=== PATIENT | male | born 1965 | race Caucasian/White ===

== ENCOUNTER → 2016-09-03 | Outpatient (CLI) | payer OTHER ==
[~2016-09-03] MED LIST: ASCA500 PO; ASCO500T16 PO; ASPI81TA28 PO; DILT-119 PO; ENOX30IN4 SQ; FRRG PO; GABA-113 PO; ISOS60TA25 PO; LSN5 PO; LVNIS30 SQ; METO25TA56 PO; MULT-878 PO; NAPR-1169 PO; NTRGSL/4 UT; OXYC-57 PO; PANT40TA PO; PRVHFAIN INH; QVRINH80 INH; SENN-61 PO; SIMV20TA2 PO; VNTHFA/IN INH
== END | disposition home or self-care (01) ==
LOC: C.RDSM 13:16
PROVIDERS: ATTEND Orthopaedic Surgery Sports Medicine
DX: M25.562 Pain in left knee (principal); M25.561 Pain in right knee

== ENCOUNTER 2016-10-08 09:14 | Inpatient (IN) | payer OTHER ==
[2016-09-12 15:26] VITALS: BMI 52.0
--- NOTE | 2016-09-12 15:49 | PAT Medication Instructions ---
Service Date Sep 12, 2016. Current Home Medication List Albuterol Hfa (Ventolin Hfa), 2-4 PUFFS INH Q6H PRN for PRN Aspirin (Aspirin Ec), 81 MG PO QAM Beclomethasone Dip (Qvar), 3 PUFFS INH BID Diltiazem Hcl Ext Rel (Tiazac), 360 MG PO QAM Gabapentin (Neurontin), 300 MG PO HS PRN for Pain Isosorbide Mononitrate Ext Rel (Imdur Ext Rel), 60 MG PO QAM Lisinopril (Lisinopril), 5 MG PO QAM Metoprolol Tartrate (Lopressor) (Lopressor), 12.5 MG PO BID Naproxen (Naprosyn), 500 MG PO BID PRN for PRN Nitroglycerin (Nitrostat), 0.4 MG UT PRN Pantoprazole (Protonix), 40 MG PO QAM Simvastatin (Zocor), 20 MG PO HS Medication Instructions For Your Scheduled Surgery - Check with surgeon for instructions: Naproxen (Naprosyn), 500 MG PO BID PRN for PRN - Hold the following medications the morning of surgery: Lisinopril (Lisinopril), 5 MG PO QAM - Take the following medications the morning of surgery with a sip of water: Nitroglycerin (Nitrostat), 0.4 MG UT PRN (if needed) Pantoprazole (Protonix), 40 MG PO QAM Metoprolol Tartrate (Lopressor) (Lopressor), 12.5 MG PO BID Isosorbide Mononitrate Ext Rel (Imdur Ext Rel), 60 MG PO QAM Beclomethasone Dip (Qvar), 3 PUFFS INH BID Diltiazem Hcl Ext Rel (Tiazac), 360 MG PO QAM Albuterol Hfa (Ventolin Hfa), 2-4 PUFFS INH Q6H PRN for PRN (use if needed; bring with you to hospital morning of surgery) Aspirin (Aspirin Ec), 81 MG PO QAM (okay to continue per surgeon) - Take the following medications as scheduled the night before surgery: Simvastatin (Zocor), 20 MG PO HS Nitroglycerin (Nitrostat), 0.4 MG UT PRN (if needed) Metoprolol Tartrate (Lopressor) (Lopressor), 12.5 MG PO BID Gabapentin (Neurontin), 300 MG PO HS PRN for Pain (if needed) Beclomethasone Dip (Qvar), 3 PUFFS INH BID Albuterol Hfa (Ventolin Hfa), 2-4 PUFFS INH Q6H PRN for PRN (if needed) If you have any questions please call us at [phone] or [phone] or [phone]
[2016-09-12 16:06] LABS: BASO % 0.5 %; BASO ABS # 0.05 K/uL (0-0.2); COMPLETE YES; EOS % 3.1 %; HEMATOCRIT 48.3 % (42-52); IG% 0.3 %; LYMPH % 27.5 %; LYMPH ABS # 2.64 K/uL (1.2-3.4); MEAN CELL VOLUME 79.3 fL (80-100); MEAN CORPUSCULAR HEMOGLOBIN 27.3 pg (25-34); MEAN CORPUSCULAR HGB CONC 34.4 g/dl (32-36); MEAN PLATELET VOLUME 9.9 fL (7.4-10.4); MONO % 10.5 %; NEUT % 58.1 %; PLATELET COUNT 291 K/uL (130-400); RED BLOOD COUNT 6.09 M/uL (4.7-6.1)
[2016-09-12 16:17] LABS: URINE APPEARANCE CLEAR (CLEAR); URINE BILIRUBIN NEG (NEG); URINE COLOR YELLOW; URINE NITRITE NEG (NEG); URINE PH 5.5 (4.5-7.5); URINE SPECIFIC GRAVITY 1.015 (1.000-1.030); UROBILINOGEN NEG (NEG)
[2016-09-12 16:19] LABS: PARTIAL THROMBOPLASTIN RATIO 1.1; PROTHROMBIN TIME (PATIENT) 10.7 SECONDS (9.0-12.0)
--- NOTE | 2016-09-12 16:21 | History and Physical ---
History & Physical Date Sep 12, 2016. Chief Complaint Left knee pain History of Present Illness The patient is a 51 year old male with complaints of left knee pain that has failed conservative measures, such as rest, ice, therapy, behavior modification , oral analgesics and antiinflammatories, along with intraarticular joint injection. The pain effects his life on a daily basis and makes it difficult to perform certain ADL's and elective activity. The pain is also worse with activity but also present at rest. Denies any recent injuries or falls. Denies calf pain or numbness/tingling in the distal extremity. Past Medical/Surgical History Past Medical History: 1) HTN 2) Obesity 3) H/O IA x 3 4) Left hip aneurysm, followed by [facility] in [place] 5) Asthma 6) Sleep apnea 7) Osteoarthritis Past Surgical History: 1) Stent placement/heart catheterization x 5 2) Left knee arthroscopy x 3 3) Right knee arthroscopy x 3 4) Left shoulder 5) Appendicitis 6) Tonsillectomy Social History: 1) Admits to 5 alcoholic beverages per week. Denies tobacco or illegal drug use. Review of systems: Denies headache, chest pain, shortness of breath, fevers, chills, night sweats Additional History Hepatic Disease: No Endocrine Disorder: No Kidney Disease: No Hypertension: Yes Heart Disease: Yes Bleeding Tendencies: No Infectious Diseases: No Allergies Coded Allergies: NO KNOWN DRUG ALLERGIES (Verified Allergy, Unknown, NONE, 09/12/16) Unclassified Drugs (Verified Allergy, Unknown, NEOPRENE KNEE BRACE-RASH SKIN IRRITATION, 09/12/16) Home Medications Scheduled Aspirin (Aspirin Ec), 81 MG PO QAM Beclomethasone Dip (Qvar), 3 PUFFS INH BID Diltiazem Hcl Ext Rel (Tiazac), 360 MG PO QAM Isosorbide Mononitrate Ext Rel (Imdur Ext Rel), 60 MG PO QAM Lisinopril (Lisinopril), 5 MG PO QAM Metoprolol Tartrate (Lopressor) (Lopressor), 12.5 MG PO BID Nitroglycerin (Nitrostat), 0.4 MG UT PRN Pantoprazole (Protonix), 40 MG PO QAM Simvastatin (Zocor), 20 MG PO HS Scheduled PRN Albuterol Hfa (Ventolin Hfa), 2-4 PUFFS INH Q6H PRN for PRN Gabapentin (Neurontin), 300 MG PO HS PRN for Pain Naproxen (Naprosyn), 500 MG PO BID PRN for PRN Physical Examination Skin: warm/dry, no rash, + pertinent finding (mild abrasions noted about the left lower extremity due to extended knee brace wear, has DC'd the brace until this clears, not infectious or full thickness, no further attention or treatment required other than removing offending agent. No erythema or effusion of the left knee. ) Eyes: normal inspection, EOMI, sclerae normal, + pertinent finding (wears glasses for driving ) ENT: normal ENT inspection, pharynx normal Head: normocephalic, atraumatic Neck: supple, no adenopathy Respiratory/Chest: lungs clear, normal breath sounds, no respiratory distress Cardiovascular: regular rate, rhythm, no edema, no murmur Abdomen / GI: normal bowel sounds, non tender, + pertinent finding (rounded) Extremities: + pertinent finding (Left knee range of motion reveals full extension , flexion of 95 degees with pain at endpoints, jointline tenderness, extensor mechanism intact, ligamentously stable) Neurologic/Psych: no motor/sensory deficits, alert, oriented x 3 Addiitonal Comments: Left knee xrays: joint space narrowing, periarticular osteophytosis, sclerotic bone change, no evidence of subchondral cyst formation, no fractures or masses otherwise Diagnosis Left knee DJD Plan of Treatment Zabrina will undergo a left total knee arthroplasty by Dr. Giorgi Aaron MD from [facility] 10/08/16 at the [facility]. Zabrina will obtain preoperative clearance through his PCP Dr. Guillen 09/26/16, Marketing Content Coordinator Dr. Peraza 09/17/16, and [facility] in [place] 09/19/16 regarding his left hip aneurysm, which has remained stable. Medications upon discharge will include Percocet for pain and Lovenox 30mg BID for DVT prophylaxis. Zabrina does not have a walker and we will write for one to be obtained while he is in the hospital. The patient is requesting to go to rehab upon discharge due to living alone and comorbidities. There will be a 2 week follow up appointment with Dr. Aaron for staple removal. Aspirin 81mg to be discontinued 7-10 days prior surgery. Any other questions please notify [facility] at [phone], thank you.
[2016-09-12 16:28] LABS: MANUAL MICROSCOPIC REQUIRED? NO; REVIEW REQ? NO
[2016-09-12 16:31] LABS: CALCIUM 9.1 mg/dl (8.5-10.1); CREATININE 0.93 mg/dl (0.60-1.40); POTASSIUM 4.5 mmol/L (3.5-5.1)
[2016-10-08] VITALS (7 sets, daily range): BP systolic 113–129; BP diastolic 72–79; PULSE 63–76; TEMP 36.4–36.6; O2SAT 96–100; Ht 180.3 cm; Wt 169.2 kg
[~2016-10-08] VITALS: Ht 180.3 cm; Wt 169.2 kg
[~2016-10-08 09:14] MED LIST changes: -ASCA500 PO; -ASCO500T16 PO; +CEFAZOLIN 3000 MG/65 ML D5W 65 ML IV SCH; -ENOX30IN4 SQ; -FRRG PO; +LACTATED RINGER'S 1000ML 1,000 ML IV SCH; +LACTATED RINGER'S 1000ML 500 ML IV ONE; -LVNIS30 SQ; +MIDAZOLAM HCL 1 MG/ML 2ML VIAL ONE; -MULT-878 PO; -OXYC-57 PO; -PRVHFAIN INH; +ROPIVACAINE 5MG/ML 30 ML 150 MG, BUPIVACAINE/EPINEPHR 0.5% MPF 30 ML, KETOROLAC TROMETH... INFIL SCH; -SENN-61 PO
[2016-10-08] MEDS ORDERED: BUPIVACAINE 0.25% 30 ML VIAL ONE (10:27)
[2016-10-08] MEDS ORDERED: BUPIVACAINE 0.5 % 5 MG/1 ML PF 10ML VIAL ONE (10:37)
--- NOTE | 2016-10-08 11:46 | History & Physical Bridge Note ---
H&P Re-Evaluation Bridge Note: I have examined the patient, reviewed the History & Physical and in the interval since the performance of the History & Physical I have noted the following changes of clinical significance: No changes noted
[2016-10-08] MEDS: TRANEXAMIC ACID INJ 1,000 MG in SODIUM CHLORIDE 0.9% 100ML 100 ML IV SCH ×2 (11:58→18:00)
[2016-10-08] MEDS ORDERED: PHENYLEPHRINE 100MCG/ML 5ML SYR IV PRN (12:30)
[2016-10-08] MEDS ORDERED: EpHEDrine SULFATE INJ 50 MG/ML AMP IV PRN (12:30)
[2016-10-08] MEDS ORDERED: ATROPINE SULFATE 0.1 MG/ML 5ML SYR IV PRN (12:30)
[2016-10-08] MEDS ORDERED: KETOROLAC TROMETHAMINE 30 MG/ML VIAL IV. PRN (12:30)
[2016-10-08] MEDS ORDERED: HYDROmorphone INJ 2 MG/ML SYR/VIAL IV PRN (12:30)
[2016-10-08] MEDS ORDERED: ONDANSETRON INJ 2 MG/ML 2 ML VIAL IV PRN ×2 (12:30→15:45)
[2016-10-08] MEDS ORDERED: LIDOCAINE HCL 2% 2 ML VIAL (20MG/ML) ONE (12:44)
[2016-10-08] MEDS ORDERED: PROPOFOL IV EMULSION 10 MG/ML 20 ML VIAL IV ONE ×4 (12:44→14:30)
[2016-10-08] MEDS ORDERED: FENTANYL CITRATE INJ 50 MCG/1 ML 2 ML VIAL ONE (13:23)
[2016-10-08] MEDS: ORTHO JOINT ANESTHETIC ONE (15:00)
[2016-10-08] MEDS: POVIDONE-IODINE OP SOLN 30 ML BTL ONE ×2 (15:00→17:53)
[2016-10-08] MEDS ORDERED: ALUMINUM/MAGNESIUM/SIMETH (MAALOX MAX) 30 ML UDC PO PRN (15:45)
[2016-10-08] MEDS ORDERED: MAGNESIUM HYDROXIDE SUSP 30 ML UDC PO PRN (15:45)
[2016-10-08] MEDS ORDERED: BISACODYL 10 MG SUPP PR PRN (15:45)
[2016-10-08] MEDS ORDERED: SOD PHOSPHATE/SOD BIPHOSPHATE ENEMA 132 ML BTL PR PRN (15:45)
[2016-10-08] MEDS ORDERED: METOCLOPRAMIDE HCL INJ 5 MG/ML 2 ML VIAL IV PRN (15:45)
[2016-10-08] MEDS ORDERED: GABAPENTIN 300 MG CAP PO PRN (16:00)
[2016-10-08] MEDS ORDERED: ALBUTEROL HFA 8 GM INHALER INH PRN (16:00)
[2016-10-08] MEDS ORDERED: NITROGLYCERIN 0.4 MG SL PER TAB CHARGE UT PRN (16:00)
--- NOTE | 2016-10-08 16:50 | DIAGNOSTIC IMAGING REPORT ---
LEFT KNEE 1 OR 2 VIEWS ROUTINE CLINICAL HISTORY: Postop study COMPARISON: August 2016 DISCUSSION: There are postsurgical changes of a total left knee arthroplasty and patellar resurfacing. The femoral and tibial components appear well seated. Overlying skin enzo are visualized. There is air within soft tissues consistent with recent surgery. IMPRESSION: Postsurgical changes of a total left knee arthroplasty. Electronically signed by: Mike Chan M.D. 10/08/2016 4:48 PM Dictated Date/Time: 10/08/2016 4:47 PM
[2016-10-08] MEDS: FERROUS GLUCONATE 324 MG TAB PO SCH (17:45)
[2016-10-08] MEDS: D5W AND 1/2NSS + 20MEQ KCL 1,000 ML IV SCH (17:59)
[2016-10-08] MEDS: CEFAZOLIN IV 2,000 MG in DEXTROSE 5% 50ML 50 ML IV SCH (18:00)
--- NOTE | 2016-10-08 18:27 | [facility] Operative Report ---
Operative Report Operative Date Oct 08, 2016. Pre-Operative Diagnosis Left knee degenerative joint disease Post-Operative Diagnosis Same as preoperative diagnosis Procedure(s) Performed Left Total Knee Arthroplasty Surgeon Dr. Giorgi Aaron Entomology Teacher Surgeon(s) Suresh Shaw PA-C and Dr. Trevin Calderón Estimated Blood Loss 125ml Findings same Specimens Permanent specimens A: Left knee bone and tissue Drains none Anesthesia spinal Complication(s) None Disposition Recovery Room / PACU Indications continued left knee pain, failed conservative management, surgery recommended, consents signed Description of Procedure taken to the OR, prepped and draped, I was present the entire case, please see Dr. Aaron's op note for further detail I attest to the content of the Intraoperative Record and any orders documented therein. Any exceptions are noted below.
--- NOTE | 2016-10-08 18:28 | [facility] Post Operative Brief Note ---
Immediate Operative Summary Operative Date Oct 08, 2016. Pre-Operative Diagnosis Left knee degenerative joint disease Post-Operative Diagnosis Same as preoperative diagnosis Procedure(s) Performed Left Total Knee Arthroplasty Surgeon Dr. Giorgi Aaron Ct Technician Surgeon(s) Suresh Shaw PA-C and Dr. Trevin Calderón Estimated Blood Loss 125ml Findings End-stage OA Left knee. Fluids (cc crystalloids) 1450 Specimens Permanent specimens A: Left knee bone and tissue Drains n/a Anesthesia Spinal + Adductor canal Block Complication(s) None Disposition Recovery Room / PACU (Stable)
--- NOTE | 2016-10-08 18:29 | [facility] Operative Report ---
Operative Report Operative Date Oct 08, 2016. Pre-Operative Diagnosis Left knee degenerative joint disease Post-Operative Diagnosis Same as preoperative diagnosis Procedure(s) Performed Left Total Knee Arthroplasty Surgeon Dr. Giorgi Aaron Telephone Advice Nurse Surgeon(s) Suresh Shaw PA-C and Dr. Trevin Calderón Estimated Blood Loss 125ml Findings Examined Under Anesthesia: ROM -- There was 5 degrees to 110 degrees of flexion Ligamentous examination -- revealed stable Mp, posterior drawer, varus and valgus stress at 0 and 30 degrees. Outerbridge Type IV changes of medial compartment and patellofemoral compartment. Outerbridge type II-III changes in the lateral compartment. Fluids 1450 Specimens Permanent specimens A: Left knee bone and tissue Drains n/a Anesthesia Spinal + Adductor canal Block Complication(s) None Disposition Recovery Room / PACU (Stable) Indications This is a 51-year-old male who has clinical and radiographic findings consistent with osteoarthritis of the a left knee. I recommended that a left total knee replacement be performed. The patient understands the risks of surgery, which include but not limited to: bleeding, infection, re-operation, damage to nerves and arteries, continued knee pain, knee stiffness, DVT, and . The patient understands all of these instructions and explanations, all of his questions have been satisfactorily addressed and the patient has elected to proceed. Informed consent was signed. Description of Procedure IMPLANTS: 1. Femur: Triathlon #6 left PS. 2. Tibia: Triathlon #6 primary. 3. Insert: Triathlon #6 x11 mm PS X3 poly. 4. Patella: Triathlon A38 x 11 mm X3 poly. Procedure: The patient was taken to the Operating Room and placed in the supine position after spinal and adductor nerve block was administered. My initials and a multidisciplinary time-out were used to identify the left leg as the correct operative limb. A tourniquet was placed high in the thigh. Prior to the incision, 3 grams of intravenous Ancef were given. The left leg was then prepped and draped in a standard sterile fashion. An Esmarch was used to exsanguinate the leg and the tourniquet was inflated to 250 mmHg. The planned mid-line 12 cm incision was created exposing the extensor mechanism. The medial parapatellar arthrotomy was made and the patella was everted. As there was some difficulty with everting the patella it was addressed first. The patella was prepared by reaming from 25 mm down to 14mm. A 38 button was found to fit best. The peg holes were made in the standard fashion. The femur was addressed next and the guide brandon was placed intramedullary. The initial cutting block was placed with 5 degrees of valgus and removing 10 mm for the anterior cut. The cut was made and the 4-in-1 cutting block for a size 6 femur was placed. These cuts and the cuts to place the box were made in the standard fashion. Our attention was then drawn to the tibia cut with the external cutting guide, taking 2mm from the medial, low side. There was insufficient extension and flexion gap to fit a 9mm spacer and an additional 2mm needed to be taken. There was a small remnant of the medial meniscus that was also removed. At this point there was sufficient extension and flexion gap for an 11 mm spacer. A #6 Tibial baseplate fit well. A trial with a 11 mm spacer showed excellent stability in both flexion and extension, with good ligament balance. Range of motion of 0-120 degrees. The tibial baseplate was pinned and the final preparation for the keel and stem was made. Due to a BMI of over 50, it was decided to place a tibial stem. All the trial components were tested again, with good stability and thumbs free tracking of the patella. All components were removed. The tourniquet was deflated. Hemostasis was obtained. A bone plug was placed in the femur and covered with bone wax. 90 ml of joint juice was injected into the soft tissues and periosteum. After a 15 minute break, the limb was exsanguinated again and the tourniquet was re-inflated. All surfaces were copiously irrigated prior to placement of the components. The femur and Tibial baseplate were placed using the first batch of cement. Again a 11 mm trial poly was placed and the range of motion and stability were unchanged. Once the cement had cured, the 11 mm X3 poly was placed. The patella was placed using the second batch. The extensor mechanism was closed with 1-0 and 0 Vicryl with the knee bent approximately 60 degrees in a standard fashion. The peritenon and deep fascia was closed with 2-0 Vicryl. The subcutaneous layer was closed with 3-0 Vicryl. The skin was closed with enzo. The limb was cleaned and dried. Xeroform was placed over top followed by 4x4's, ABDs, sterile Webril, and a foot to thigh Antonio bandage. The patient was then transferred to the Recovery Room in stable condition. The sponge and needle counts were correct. POST-OP INSTRUCTIONS: The patient will be WBAT. The patient will be admitted to the hospital. The patient will use the knee immobilizer when ambulating and standing until good quad control is achieved. Labs will be obtained during her stay. DVT prophylaxis will included Lovenox for 3 weeks then switching to aspirin for 3 more weeks, TEDs, and mechanical foot pumps. I attest to the content of the Intraoperative Record and any orders documented therein. Any exceptions are noted below.
--- NOTE | 2016-10-08 18:29 | Anesthesiology Progress Note ---
Anesthesia Post Op Note Date & Time Oct 08, 2016 at 16:20 Vital Signs Pain Intensity: 5 Vital Signs Past 12 Hours Date Time Temp Pulse Resp B/P (MAP) Pulse Ox O2 Delivery O2 Flow Rate FiO2 10/08/16 09:36 36.6 68 20 116/77 97 Room Air Notes Mental Status: alert / awake / arousable, participated in evaluation Pt Amnestic to Procedure: Yes Nausea / Vomiting: adequately controlled Pain: adequately controlled Airway Patency, RR, SpO2: stable & adequate BP & HR: stable & adequate Hydration State: stable & adequate Anesthetic Complications: no major complications apparent
--- NOTE | 2016-10-08 19:47 | Medical Consult ---
Consultation Date of Consultation: Oct 08, 2016. Attending Physician: Giorgi Aaron MD Reason for Consultation: Medical management History of Present Illness This is a 51 yo F with HTN, HLD, morbid obesity BMI, Hx of Myocardial infarction x 3: First was in 2008, second and third at unknown time, but has a total of 5 stents placed, first 3 were after the second HI, and he most recently had 2 more stents placed in 2014. The patient also has PMHx of asthma, sleep apnea requiring CPAP, ostearthritis, and a left hip aneurysm which is followed by Dr. Palma in [place]. The patient was admitted for an elective Left TKA by Dr. Girogi Aaron on 10/08/16. Pt currently reports his pain is worsening, and that he still has some numbness but that its resolving. He denies any acute pain, and states surgery went well. He ate dinner without difficulty and has not suffered any nausea. His plans for going home include a stay at rehab since he lives at home alone, and does not have close friends or neighbors who would be willing to assist him at home. Past Medical/Surgical History HTN Hyperlipidemia Morbid obesity BMI =52 Hx of Myocardial infarction x 3 s/p 5 stents Asthma Obstructive sleep apnea requiring CPAP Ostearthritis Left hip aneurysm Family History Surgical History: 1) Stent placement/heart catheterization x 5 2) Left knee arthroscopy x 3 3) Right knee arthroscopy x 3 4) Left shoulder 5) Appendicitis 6) Tonsillectomy Social History Smoking Status: Never Smoker Alcohol Use: occasionally (5 drinks per week) Drug Use: none Housing Status: lives alone Allergies Coded Allergies: NO KNOWN DRUG ALLERGIES (Verified Allergy, Unknown, NONE, 10/08/16) Unclassified Drugs (Verified Allergy, Unknown, NEOPRENE KNEE BRACE-RASH SKIN IRRITATION, 10/08/16) Current Inpatient Medications Current Inpatient Medications Medications (Trade) Dose Ordered Sig/Yimi Route Start Time Stop Time Status Last Admin Dose Admin Lactated Ringer's 1,000 ml @ 15 mls/hr Q24H IV 10/08/16 06:00 10/09/16 05:59 Lactated Ringer's 1,000 ml @ 60 mls/hr [id number] IV 10/08/16 06:00 10/08/16 22:39 Potassium Chloride/Dextrose/ Sod Cl 1,000 ml @ 100 mls/hr Q10H IV 10/08/16 17:45 10/09/16 15:38 10/08/16 17:59 100 MLS/HR Cefazolin Sodium 2000 mg/Dextrose 60 ml @ 100 mls/hr Q8H IV 10/08/16 18:00 10/09/16 02:35 10/08/16 18:00 100 MLS/HR Oxycodone HCl (Roxicodone Immediate Rel Tab) 1 TABLET FOR PAIN RATING... Q4H PRN PO 10/08/16 15:45 10/22/16 15:44 Morphine Sulfate (MoRPHine SULFATE INJ) 2 mg Q2HWA PRN IV 10/08/16 15:45 10/22/16 15:44 Acetaminophen (Tylenol Tab) 1,000 mg Q8 PO 10/08/16 22:00 11/07/16 21:59 Magnesium Hydroxide (Milk Of Magnesia Susp) 30 ml Q6H PRN PO 10/08/16 15:45 11/07/16 15:44 Bisacodyl (Dulcolax Supp) 10 mg DAILY PRN PA 10/08/16 15:45 11/07/16 15:44 Sodium Biphosphate/ Sodium Phosphate (Fleet Enema) 132 ml DAILY PRN PA 10/08/16 15:45 11/07/16 15:44 Senna (Senokot Tab) 17.2 mg HS PO 10/08/16 21:00 11/07/16 20:59 Docusate Sodium (coLACE CAP) 100 mg BID PO 10/08/16 21:00 11/07/16 20:59 Diphenhydramine HCl (Benadryl Cap) 25 mg Q8H PRN PO 10/08/16 15:45 11/07/16 15:44 Al Hydrox/Mg Hydrox/Simethicone (Maalox Max Susp) 15 ml Q4H PRN PO 10/08/16 15:45 11/07/16 15:44 Multivitamins (Multivitamin Tab) 1 tab QAM PO 10/09/16 09:00 11/08/16 08:59 Ondansetron HCl (Zofran Inj) 4 mg Q6H PRN IV 10/08/16 15:45 11/07/16 15:44 Metoclopramide HCl (Reglan Inj) 10 mg Q6H PRN IV 10/08/16 15:45 11/07/16 15:44 Ferrous Gluconate (Ferrous Gluconate Tab) 324 mg TIDM PO 10/08/16 17:45 11/07/16 17:59 Pantoprazole Sodium (Protonix Tab) 40 mg QAM PO 10/09/16 09:00 11/08/16 08:59 Albuterol (Ventolin Hfa Inhaler) as needed for wheezing Q6H PRN INH 10/08/16 16:00 11/07/16 15:59 Beclomethasone Dipropionate (Qvar 80 Mcg Hfa Inhaler) 3 puffs BID INH 10/08/16 21:00 11/07/16 20:59 Diltiazem HCl (TIAzac CAP) 360 mg QAM PO 10/09/16 09:00 11/08/16 08:59 Gabapentin (Neurontin Cap) 300 mg HS PRN PO 10/08/16 16:00 11/07/16 15:59 Isosorbide Mononitrate (Imdur Ext Rel Tab) 60 mg QAM PO 10/09/16 09:00 11/08/16 08:59 Lisinopril (Zestril Tab) 5 mg QAM PO 10/09/16 09:00 11/08/16 08:59 Metoprolol Tartrate (Lopressor Tab) 12.5 mg BID PO 10/08/16 21:00 11/07/16 20:59 Nitroglycerin (Nitrostat Tab) 0.4 mg UD PRN UT 10/08/16 16:00 11/07/16 15:59 Simvastatin (Zocor Tab) 20 mg HS PO 10/08/16 21:00 11/07/16 20:59 Enoxaparin Sodium (Lovenox Inj) 30 mg Q12H SQ 10/09/16 08:00 11/08/16 07:59 Ascorbic Acid (Vitamin C Tab) 500 mg QAM PO 10/09/16 09:00 11/08/16 08:59 Review of Systems Constitutional: No fever, No chills, No sweats Eyes: No eye pain, No diplopia ENT: No trouble swallowing Respiratory: No cough, No shortness of breath, No dyspnea on exertion, No dyspnea at rest Cardiovascular: No chest pain, No palpitations Abdomen: No pain, No nausea, No vomiting, No diarrhea, No constipation Musculoskeletal: No joint pain, No swelling Neurologic: No memory loss, No numbness/tingling Psychiatric: No depression symptoms, No anxiety Integumentary: No rash, No itch Physical Exam Date Time Temp Pulse Resp B/P (MAP) Pulse Ox O2 Delivery O2 Flow Rate FiO2 10/08/16 19:10 36.4 76 18 121/72 (88) 96 Nasal Cannula 2.0 10/08/16 17:54 100 Nasal Cannula 2.0 10/08/16 17:40 36.4 67 18 120/74 (89) 98 Nasal Cannula 2.0 10/08/16 17:10 100 Nasal Cannula 2.0 10/08/16 16:50 72 18 112/70 97 Nasal Cannula 2 10/08/16 16:40 36.3 63 18 112/74 96 Nasal Cannula 2 10/08/16 16:30 60 23 115/73 97 Nasal Cannula 2 10/08/16 16:20 70 16 124/74 99 Nasal Cannula 2 10/08/16 16:13 36.4 65 16 107/79 100 Nasal Cannula 2 10/08/16 09:36 36.6 68 20 116/77 97 Room Air General Appearance: WD/WN, no apparent distress, + obese Head: normocephalic, atraumatic Eyes: PERRL, EOMI ENT: hearing grossly normal, pharynx normal Neck: supple, no JVD Respiratory/Chest: lungs clear, normal breath sounds, no respiratory distress, no accessory muscle use Cardiovascular: regular rate, rhythm, no edema, no murmur Abdomen/GI: normal bowel sounds, non tender, soft Back: normal inspection Extremities/Musculoskelatal: no calf tenderness, no pedal edema, + pertinent finding (LLE with DEVAUGHN bandage in place, c/d/i, ice pack over knee. ) Neurologic/Psych: alert, normal mood/affect, oriented x 3, + pertinent finding (sensation to light touch intact distally and equal bilaterally) Skin: normal color, warm/dry Assessment & Plan This is a 51 yo M with PMHx of HTN, morbid obesity BMI, Hx of Myocardial infarction x 3, asthma, sleep apnea, ostearthritis, left hip aneurysm, who was admitted for Left TKA by Dr. Giorgi Aaron. Left TKA - Analgesia, DVT ppx with lovenox per the primary team - Bowel regimen in place - PT/OT - Plans for rehab after hospitalization as he does not have help at home, lives alone. CM to assist with discharge planning. - Follow am labs for H&H HI x 3 - Initial cardiac event was in 2008, the second and third MIs he is unable to say when they were. But pt notes his last cardiac intervention was in 2014 where 2 more stents were placed, he now has a total of 5 stents. Pt is unable to tell me if these are bare metal or drug eluting stents. - Continue diltiazem 360 QAM, Imdur 60 mg QAM, metoprolol 12.5 mg BID, lisinopril 5 mg QAM, simvastatin 20 mg QPM Baby aspirin was held prior to procedure. Can resume likely tomorrow if cleared by primary team. - Outpatient lottery clerk is Dr. Peraza Obstructive Sleep Apnea - Continue to use home cpap machine Asthma - Pts triggers include cold air - last asthma attack was over a year ago. Osteoarthritis - Cont Vit D supplementation Left Hip aneurysm - follows with [facility] in [place], regarding his left hip aneurysm, stable DVT ppx: Teds, scds, lovenox 30 mg subq Q12H Code Status: Full Code Disposition: From home, discharge to rehab when stable per primary team Attending Admission Note & Attestation: Pt seen/examined, chart reviewed, care plan d/w THIAGO Cui. I agree w/ the polanco components of her consult documentation. 51yo male with known CAD and prior MIs, morbid obesity, ROSE on CPAP - who underwent elective left TKR today. I saw him post-op on the surg floor - he had NO chest pain, dyspnea, abd pain, nausea, etc. PMH, PSH, allergies, meds, sochx, famhx, ros - reviewed VSS no fever gen - nad, a/o x 3 neck - no JVD heart - RRR, s1, s2, no murmur lungs - CTA b/l, mildly decreased BS bases abd - soft, obese, BS+ ext - mild edema left ankle, large dressing in place left knee; no edema on right A/P: 1. s/p left TKR 2. CAD with prior MIs - resume aspirin as soon as possible and ok with primary ortho team; continue all prehospital cardiac meds 3. morbid obesity w/ BMI 52 4. ROSE - CPAP labs in regla ZARAGOZA MD
[2016-10-08] MEDS: OXYCODONE HCL IR 5 MG TAB (IMMEDIATE RELEASE) PO PRN (20:08)
[2016-10-08] MEDS: MoRPHine SULFATE 2 MG/ML CARP IV PRN (21:23)
[2016-10-08] MEDS: BECLOMETHASONE DIP HFA 80 MCG 8.7G INH INH SCH (21:24)
[2016-10-08] MEDS: DOCUSATE SODIUM 100 MG CAP PO SCH (21:25)
[2016-10-08] MEDS: METOPROLOL TARTRATE 25 MG TAB PO SCH (21:25)
[2016-10-08] MEDS: SENNA 8.6 MG TAB PO SCH (21:25)
[2016-10-08] MEDS: SIMVASTATIN 20 MG TAB PO SCH (21:25)
[2016-10-08] MEDS: ACETAMINOPHEN 500 MG TAB PO SCH (21:26)
[2016-10-09] MEDS: CEFAZOLIN IV 2,000 MG in DEXTROSE 5% 50ML 50 ML IV SCH (02:27)
[2016-10-09] MEDS: MoRPHine SULFATE 2 MG/ML CARP IV PRN ×2 (02:28→11:38)
[2016-10-09] MEDS: D5W AND 1/2NSS + 20MEQ KCL 1,000 ML IV SCH ×2 (03:22→13:52)
[2016-10-09 03:44] VITALS: BP 108/70; PULSE 68; TEMP 36.6; O2SAT 96
[2016-10-09] MEDS: ACETAMINOPHEN 500 MG TAB PO SCH ×3 (05:27→22:03)
[2016-10-09 06:19] LABS: HEMATOCRIT 45.2 % (42-52); MEAN CORPUSCULAR HEMOGLOBIN 27.8 pg (25-34); MEAN CORPUSCULAR HGB CONC 34.7 g/dl (32-36); MEAN PLATELET VOLUME 10.4 fL (7.4-10.4); PLATELET COUNT 283 K/uL (130-400); RED BLOOD COUNT 5.65 M/uL (4.7-6.1); WHITE BLOOD COUNT 16.48 K/uL (4.8-10.8)
[2016-10-09 06:53] LABS: BUN/CREATININE RATIO 22.8 (10-20); CALCIUM 8.5 mg/dl (8.5-10.1); CREATININE 0.98 mg/dl (0.60-1.40); POTASSIUM 4.1 mmol/L (3.5-5.1)
[2016-10-09 08:00] VITALS: BP 114/76; PULSE 75; TEMP 36.6; O2SAT 95
[2016-10-09] MEDS: ENOXAPARIN 30 MG/0.3 ML SYR SQ SCH ×2 (08:02→20:16)
[2016-10-09] MEDS: FERROUS GLUCONATE 324 MG TAB PO SCH ×3 (08:03→17:48)
[2016-10-09] MEDS: BECLOMETHASONE DIP HFA 80 MCG 8.7G INH INH SCH ×2 (08:05→21:12)
[2016-10-09] MEDS: METOPROLOL TARTRATE 25 MG TAB PO SCH ×2 (08:06→21:14)
[2016-10-09] MEDS: MULTIVITAMIN TAB PO SCH (08:07)
[2016-10-09] MEDS: ISOSORBIDE MONONITRATE 60 MG TABCR PO SCH (08:07)
[2016-10-09] MEDS: LISINOPRIL 5 MG TAB PO SCH (08:08)
[2016-10-09] MEDS: ASCORBIC ACID 500 MG TAB PO SCH (08:08)
[2016-10-09] MEDS: DILTIAZEM HCL (TIAzac) 180 MG CAPCR PO SCH (08:09)
[2016-10-09] MEDS: PANTOprazole SOD 40 MG TAB PO SCH (08:09)
[2016-10-09] MEDS: DOCUSATE SODIUM 100 MG CAP PO SCH ×2 (08:09→21:13)
[2016-10-09 08:29] VITALS: O2SAT 95
[2016-10-09] MEDS ORDERED: PANTOprazole SOD 40 MG TAB PO SCH (09:00)
--- NOTE | 2016-10-09 09:24 | Anesthesiology Progress Note ---
Anesthesia Post Op Note Date & Time Oct 09, 2016 at 09:23 Vital Signs Pain Intensity: 4.0 Vital Signs Past 12 Hours Date Time Temp Pulse Resp B/P (MAP) Pulse Ox O2 Delivery O2 Flow Rate FiO2 10/09/16 08:29 95 Room Air 10/09/16 08:00 36.6 75 15 114/76 (89) 95 Room Air 10/09/16 08:00 95 Room Air 10/09/16 03:44 36.6 68 18 108/70 (83) 96 Room Air 10/08/16 23:10 36.5 63 20 113/79 (90) 98 Room Air Notes Mental Status: alert / awake / arousable, participated in evaluation Pt Amnestic to Procedure: Yes Nausea / Vomiting: adequately controlled Pain: adequately controlled Airway Patency, RR, SpO2: stable & adequate BP & HR: stable & adequate Hydration State: stable & adequate Neuraxial Anesthesia: was administered, sensory block resolved Anesthetic Complications: no major complications apparent
--- NOTE | 2016-10-09 10:18 | Progress Note ---
Orthopedic SOAP Note Subjective Date of Service: Oct 09, 2016. Post OP Day: 1 Reports: feeling well, pain controlled w PO medications, Denies: complaints, chest pain, SOB, nausea / vomiting, light headedness, calf pain, using COUNTER MOLDER Objective calves soft nontender, N/V intact, capillary refill less than 2 sec., dressing C /D/I, A&O x3, toes mobile attempts a SLR, is able to lift leg off of bed several inches, doing well so far Date Time Temp Pulse Resp B/P (MAP) Pulse Ox O2 Delivery O2 Flow Rate FiO2 10/09/16 08:29 95 Room Air 10/09/16 08:00 36.6 75 15 114/76 (89) 95 Room Air 10/09/16 08:00 95 Room Air 10/09/16 03:44 36.6 68 18 108/70 (83) 96 Room Air 10/08/16 23:10 36.5 63 20 113/79 (90) 98 Room Air 10/08/16 21:20 69 129/79 (96) 10/08/16 20:10 36.4 70 18 123/77 (92) 97 CPAP 10/08/16 19:15 Room Air 10/08/16 19:10 36.4 76 18 121/72 (88) 96 Nasal Cannula 2.0 10/08/16 17:54 100 Nasal Cannula 2.0 10/08/16 17:40 36.4 67 18 120/74 (89) 98 Nasal Cannula 2.0 10/08/16 17:10 100 Nasal Cannula 2.0 10/08/16 16:50 72 18 112/70 97 Nasal Cannula 2 10/08/16 16:40 36.3 63 18 112/74 96 Nasal Cannula 2 10/08/16 16:30 60 23 115/73 97 Nasal Cannula 2 10/08/16 16:20 70 16 124/74 99 Nasal Cannula 2 10/08/16 16:13 36.4 65 16 107/79 100 Nasal Cannula 2 Laboratory Results 24 Hours: Test 10/09/16 05:37 Hematocrit 45.2 % Hemoglobin 15.7 g/dL Assessment day 1 s/p Left TKA Plan continue post op care pain control with prescribed medications PT/OT resume diet ice/elevate WBAT left LE with walker and assist knee immobilizer during ambulation once better quad control DVT prophylaxis with Lovenox 30mg BID x 3 weeks then switch to ASA 325mg BID for 3 weeks additionally appreciate medicine's input discharge planning will discuss findings further with Dr. Aaron I, Dr. Aaron, saw and examined the patient and discussed the management with my PA. I reviewed my PAs note and agree with the documented findings and the plan of care I developed.
[2016-10-09 11:38] VITALS: BP 100/56; PULSE 55; TEMP 36.6; O2SAT 97
[2016-10-09 15:35] VITALS: BP 104/67; PULSE 71; TEMP 36.7; O2SAT 95
--- NOTE | 2016-10-09 15:57 | Progress Note ---
Subjective Date of Service: Oct 09, 2016. Subjective Pt evaluation today including: conversation w/ patient, conversation w/ family Pt is doing well post-op. States he has pain but manageable. Tolerating PO without issue. No chest pain or SOB. Pt denies fever, abd pain, n/v/c/d, LE swelling. Review of Systems All Other Systems: Reviewed and Negative Objective Vital Signs Date Time Temp Pulse Resp B/P (MAP) Pulse Ox O2 Delivery O2 Flow Rate FiO2 10/09/16 15:35 36.7 71 18 104/67 (79) 95 Room Air 10/09/16 11:38 36.6 55 16 100/56 (71) 97 Room Air 10/09/16 08:29 95 Room Air 10/09/16 08:00 36.6 75 15 114/76 (89) 95 Room Air 10/09/16 08:00 95 Room Air 10/09/16 03:44 36.6 68 18 108/70 (83) 96 Room Air 10/08/16 23:10 36.5 63 20 113/79 (90) 98 Room Air 10/08/16 21:20 69 129/79 (96) 10/08/16 20:10 36.4 70 18 123/77 (92) 97 CPAP 10/08/16 19:15 Room Air 10/08/16 19:10 36.4 76 18 121/72 (88) 96 Nasal Cannula 2.0 10/08/16 17:54 100 Nasal Cannula 2.0 10/08/16 17:40 36.4 67 18 120/74 (89) 98 Nasal Cannula 2.0 10/08/16 17:10 100 Nasal Cannula 2.0 10/08/16 16:50 72 18 112/70 97 Nasal Cannula 2 10/08/16 16:40 36.3 63 18 112/74 96 Nasal Cannula 2 10/08/16 16:30 60 23 115/73 97 Nasal Cannula 2 10/08/16 16:20 70 16 124/74 99 Nasal Cannula 2 10/08/16 16:13 36.4 65 16 107/79 100 Nasal Cannula 2 Physical Exam General Appearance: no apparent distress, + obese Eyes: normal inspection, EOMI Respiratory/Chest: normal breath sounds, no respiratory distress Cardiovascular: regular rate, rhythm, no edema Abdomen: non tender, soft Extremities: non-tender, no pedal edema Neurologic/Psychiatric: alert, normal mood/affect, oriented x 3 Skin: normal color, warm/dry Laboratory Results Last 24 Hours Test 10/09/16 05:37 White Blood Count 16.48 K/uL Red Blood Count 5.65 M/uL Hemoglobin 15.7 g/dL Hematocrit 45.2 % Mean Corpuscular Volume 80.0 fL Mean Corpuscular Hemoglobin 27.8 pg Mean Corpuscular Hemoglobin Concent 34.7 g/dl RDW Standard Deviation 43.5 fL RDW Coefficient of Variation 15.0 % Platelet Count 283 K/uL Mean Platelet Volume 10.4 fL Sodium Level 137 mmol/L Potassium Level 4.1 mmol/L Chloride Level 105 mmol/L Carbon Dioxide Level 26 mmol/L Anion Gap 6.0 mmol/L Blood Urea Nitrogen 22 mg/dl Creatinine 0.98 mg/dl Est Creatinine Clear Calc Drug Dose 145.5 ml/min Estimated GFR () 104.5 Estimated GFR (Non- 90.2 BUN/Creatinine Ratio 22.8 Random Glucose 141 mg/dl Calcium Level 8.5 mg/dl Chemistry Specimen Hemolysis Assessment and Plan 51 y/o M with PMHx of HTN, morbid obesity BMI, Hx of Myocardial infarction x 3, asthma, sleep apnea, ostearthritis, left hip aneurysm, who was admitted for Left TKA by Dr. Giorgi Aaron. Left TKA - Analgesia, DVT ppx with lovenox per the primary team - Bowel regimen in place - PT/OT - Plans for rehab after hospitalization as he does not have help at home, lives alone. CM to assist with discharge planning. - Follow am labs for H&H [facility] x 3 - Initial cardiac event was in 2008, the second and third MIs he is unable to say when they were. But pt notes his last cardiac intervention was in 2014 where 2 more stents were placed, he now has a total of 5 stents. Pt is unable to tell me if these are bare metal or drug eluting stents. - Continue diltiazem 360 QAM, Imdur 60 mg QAM, metoprolol 12.5 mg BID, lisinopril 5 mg QAM, simvastatin 20 mg QPM Baby aspirin was held prior to procedure. Can resume likely tomorrow if cleared by primary team. - Outpatient rental car deliverer is Dr. Peraza Obstructive Sleep Apnea - Continue to use home cpap machine Asthma - Pts triggers include cold air - last asthma attack was over a year ago. Osteoarthritis - Cont Vit D supplementation Left Hip aneurysm - follows with [facility] in [place], regarding his left hip aneurysm, stable DVT ppx: Teds, scds, lovenox 30 mg subq Q12H Code Status: Full Code Disposition: From home, discharge to rehab when stable per primary team
[2016-10-09] MEDS: OXYCODONE HCL IR 5 MG TAB (IMMEDIATE RELEASE) PO PRN ×2 (17:48→22:02)
[2016-10-09] MEDS: SENNA 8.6 MG TAB PO SCH (21:13)
[2016-10-09] MEDS: SIMVASTATIN 20 MG TAB PO SCH (21:13)
[2016-10-09 23:05] VITALS: BP 117/75; PULSE 79; TEMP 36.8; O2SAT 96
[2016-10-10] MEDS: OXYCODONE HCL IR 5 MG TAB (IMMEDIATE RELEASE) PO PRN ×3 (05:29→21:57)
[2016-10-10] MEDS: ACETAMINOPHEN 500 MG TAB PO SCH ×3 (05:29→21:56)
[2016-10-10 07:13] LABS: HEMATOCRIT 40.8 % (42-52); MEAN CELL VOLUME 80.3 fL (80-100); MEAN CORPUSCULAR HEMOGLOBIN 27.2 pg (25-34); MEAN CORPUSCULAR HGB CONC 33.8 g/dl (32-36); MEAN PLATELET VOLUME 10.1 fL (7.4-10.4); PLATELET COUNT 246 K/uL (130-400); RED BLOOD COUNT 5.08 M/uL (4.7-6.1); WHITE BLOOD COUNT 12.01 K/uL (4.8-10.8)
[2016-10-10] MEDS: ENOXAPARIN 30 MG/0.3 ML SYR SQ SCH ×2 (07:27→20:26)
[2016-10-10 07:35] VITALS: O2SAT 97
[2016-10-10 07:50] LABS: BUN/CREATININE RATIO 16.8 (10-20); CALCIUM 8.6 mg/dl (8.5-10.1); CREATININE 0.88 mg/dl (0.60-1.40); POTASSIUM 3.9 mmol/L (3.5-5.1)
[2016-10-10 07:55] VITALS: BP 127/84; PULSE 79; TEMP 36.7; O2SAT 96
[2016-10-10 07:56] VITALS: O2SAT 96
--- NOTE | 2016-10-10 08:44 | Progress Note ---
Orthopedic SOAP Note Subjective Date of Service: Oct 10, 2016. Reports: feeling well, pain controlled w PO medications, Denies: complaints, chest pain, SOB, nausea / vomiting, light headedness, calf pain, using BUSINESS INTELLIGENCE CONSULTANT Objective calves soft nontender, N/V intact, capillary refill less than 2 sec., dressing C /D/I (there is mild serous drainage noted on the patient's dressing, nothing concerning or excessive at this point and will continue to monitor ), incision C /D/I, A&O x3, toes mobile Date Time Temp Pulse Resp B/P (MAP) Pulse Ox O2 Delivery O2 Flow Rate FiO2 10/10/16 07:56 96 Room Air 10/10/16 07:55 36.7 79 14 127/84 (98) 96 Room Air 10/10/16 07:35 97 Room Air 10/09/16 23:20 Room Air 10/09/16 23:05 36.8 79 20 117/75 (89) 96 Room Air 10/09/16 15:35 36.7 71 18 104/67 (79) 95 Room Air 10/09/16 15:30 Room Air 10/09/16 11:38 36.6 55 16 100/56 (71) 97 Room Air Laboratory Results 24 Hours: Test 10/10/16 06:41 Hematocrit 40.8 % Hemoglobin 13.8 g/dL Assessment day 2 s/p Left TKA Plan continue post op care pain control with prescribed medications PT/OT resume diet ice/elevate dressing changed post op day 2 WBAT left LE with walker and assist knee immobilizer during ambulation once better quad control DVT prophylaxis with Lovenox 30mg BID x 3 weeks then switch to ASA 325mg BID for 3 weeks additionally appreciate medicine's input discharge planning, awaiting approval/auth regarding rehab facility will discuss findings further with Dr. Aaron. I, Dr. Aaron, saw and examined and agree with the above findings and plan of care which was discussed with my PA.
[2016-10-10] MEDS ORDERED: OXYC-57 PO (08:46)
[2016-10-10] MEDS ORDERED: FRRG PO (08:46)
[2016-10-10] MEDS ORDERED: ASCA500 PO (08:46)
[2016-10-10] MEDS ORDERED: LVNIS30 SQ (08:46)
--- NOTE | 2016-10-10 08:52 | Discharge Instructions ---
Discharge Instructions Date of Service Oct 10, 2016. Admission Reason for Admission: Left Knee Osteoarthritis #686 Discharge Discharge Diagnosis / Problem: s/p Left TKA Discharge Goals Goal(s): Decrease discomfort, Improve function, Increase independence Activity Recommendations Activity Level: Up Ad Dasia, Ambulates in room, Self Positioning, OOB In Chair, Assistance Required Therapies: Physical Therapy, Weight Bearing Status (as tolerated ), Occupational Therapy Weightbearing Status: Left weightbearing (as tolerated) Lifting Limitations: gradually increase as tolerated Exercise/Sports Limitations: until after follow-up appointment . Additional Information Patient informed of condition: Yes Advance Directives: No DNR: No Level of Care: Acute Rehab Communicable Disease: No Prognosis: Stable Pope Catheter: No Instructions / Follow-Up Instructions / Follow-Up New Medicine: * You will likely be taking one or more of these medications: 1. Percocet - Take, as directed, when you need it, every four to six hours to control your pain 2. Iron Sulfate - Take two times each day for 4 weeks after surgery to help you replace blood loss from surgery. Vitamin C helps this work more effectively and is to be taken in with Iron for 4 weeks. 3. Lovenox - Thins your blood to lessen the chance of forming a blood clot. Take this medication every morning and evening for 3 weeks 4. Aspirin 325mg - Thins your blood to lessen the chance of forming a blood clot. Take this medication for 3 weeks also but is NOT to be started until AFTER completing your 3 weeks of Lovenox * The most common side effects of pain medicine and iron are nausea and constipation. If nausea or constipation is too much of a problem or if you have any questions about your new medicines or doses, call [facility] at . We will try to help you manage these issues. Narcotic Pain Medication Post-Operatively has a high tendency to cause constipation. Signs, Symptoms, and Causes Constipation is when you are not passing stool as often as you normally do. Your stool becomes hard and dry, and it is difficult to pass. You might feel bloated and have pain, or you might have to strain when you try to go. Some medicines, including narcotics, can make you constipated. You can also get constipated if you are not getting enough fiber, using the bathroom as soon as you feel the urge to go, or getting enough exercise. Try to get to know your normal bowel movement pattern, so that you can keep constipation from getting worse. How to Prevent Constipation Drink more water and eat more fiber. Try these things to relieve your constipation: * Do not skip meals. * Avoid processed or fast foods, such as white breads, pastries, doughnuts, sausage. fast-food burgers, potato chips, and Greek fries. Many foods are good natural "laxatives" that will help you move your bowels. High-fiber foods help waste move through your body. Add foods with fiber to your diet slowly because eating more fiber can cause gas Drink 8 to10 cups of liquids, especially water, every day. Most fruits will help ease constipation. Berries, peaches, apricots, plums, raisins, rhubarb, and prunes are just some that may help. Do not peel fruits that have edible skins, since a lot of the fiber is in their skins. Choose breads, crackers, pasta, pancakes, and waffles made with whole grains, or make your own. Use brown rice or wild rice instead of white rice. Eat high- fiber cereals. Vegetables can also add fiber to your diet. Some high-fiber vegetables are asparagus, broccoli, corn. squash, and potatoes (with the skin still on). Salads made with lettuce, spinach, and cabbage will also help. Legumes (navy beans, kidney beans, chick peas, soy beans, and lentils), peanuts , walnuts, and almonds will also add fiber to your diet. Other foods you can eat are: * Fish, chicken, turkey, or other lean meats. These do not have fiber, but they will not make constipation worse. * Snacks such as raisin cookies, fig bars, and popcorn. You can also sprinkle 1 or 2 teaspoons of bran flakes, ground flax seeds, wheat bran, or psyllium on foods such as yogurt, cereal, and soup. Or, add them to your smoothie. Immediately after surgery, if you are taking pain medications, we recommend that you start taking stool softeners and a gentle laxative. You can buy stool softeners at any pharmacy. They will help you pass stool more easily. Your doctor may prescribe a laxative to relieve your constipation. It may be a pill or liquid. Do NOT take it if you have severe stomach pain, nausea, or vomiting. Do NOT take it for more than 1 week. It should start to work in 2 to 5 days. * As long as you take pain medication you will most likely need a laxative. * Always drink plenty of water (8 to 10 cups a day) when you are using laxatives. * Store your laxative medicine safely in a medicine cabinet, where children cannot get to it. * Take the laxative as directed, daily as needed. Try to stop laxatives within 2-3 weeks after surgery. Some Examples: * Stool Softeners: Colace, vegetables, Metamucil, Citrucel, any type of food roughage. * Laxatives: Sennakot tablets, Miralax, Milk of Magnesia, Dulcolax, and so on. We recommend trying the gentle laxatives before going to the strong ones (i.e. ExLax). Some people get a rash, nausea, or sore throat while taking laxatives. Women who are or breast-feeding and children under age 6 should NOT take laxatives. Bulk-forming laxatives such as Metamucil or Perdiem can help pull water into your intestines and make your stools more bulky. VERY IMPORTANT TO READ AND REVIEW" Pain: * The immediate post-operative period after knee replacement surgery is often quite painful. * You are given a prescription for pain medicine. You should take it, as directed, when you need it, especially before physical therapy and before going to bed. Pain that interferes with sleep is very common and can last several months. * You will likely need pain medicine for the first four to six weeks. It will not stop all of the pain. The pain will lessen and as you feel better, you may change to milder pain medicine such as Tylenol. * The most common side effects of pain medicine are nausea and constipation, so don't take more than you need. Physical Therapy: * You will have physical therapy two or three times each week for four to six weeks after your surgery in order to regain your knee range of motion and to retrain your knee to work properly. * It is just as important to make sure you are getting your knee perfectly straight as it is to regain your knee bend. * Taking a pain pill an hour before therapy can help you have a more productive and comfortable therapy session if needed. Home Exercise: * You were shown a series of exercises (heel props, heel slides, etc.) in the hospital. Do these exercises three to four times each day including the exercises you were shown in physical therapy. Walking: * Get up and walk several times each day. For the first four weeks, try not to stand or walk for more than one hour at a time. If you do stand or walk for more than one hour, you will not hurt anything, but your knee and leg will likely swell. * As you feel comfortable, you may change from the walker or crutches to a cane and then to independent walking. SELF CARE INSTRUCTIONS AFTER TOTAL KNEE REPLACEMENT A. You may need to continue a physical therapy program after discharge from the hospital. There are several options available to you. Your doctor will assist you in selecting the best one for you. 1. An out-patient facility 2 to 3 times a week for therapy or home therapy. 2. Continue working on all exercises taught to you in the hospital. Your goals should be to increase bending of your knee to 90 degrees and beyond and to fully straighten your knee. B. You may progress at your own pace from walking with a walker or crutches to a cane; then to no assistive devices. C. Make walking a part of your daily routine. Be up as much as comfortable with rest periods throughout the day. Rest with leg elevation is very important. Use the ice wrap frequently for the first 3-4 weeks. D. There are no restrictions on activities. You may ride in a car, shop, participate in sales and marketing analyst and all social activities. E. Do not place a pillow behind your knee when resting. A pillow at your ankle is okay. TEDs/Elastic Stockings: * The white elastic stockings help limit swelling and prevent blood clots from forming in your legs. The more you wear them, the more they work. * Wear them for two weeks after knee replacement surgery, approximately 20 hours per day. it is OK to remove them to rest your legs or bathe. Prevention of Infection: * Take antibiotics one hour before any dental cleaning, dental work, urological procedure, gastrointestinal procedure or any invasive surgery in order to prevent your new joint from getting infected. (See pre-op instruction sheet ) * You may get the antibiotics from the doctor performing the procedure or you may call our office at before and we will call in a prescription to the pharmacy of your choice. Things to Watch For: * Drainage from the incision site that starts three or more days after your surgery. * Severely increased knee/leg pain or swelling. * Increased redness at the incision site. * Fever above 102 degrees Fahrenheit. * Unusual chest pain or shortness of breath. * Unusual pain or burning with urination. Call [facility] at with any of the above problems or if you have any questions about your medicines or recovery. Follow-up Visit: Make an appointment to see your doctor about two weeks after surgery for a progress check and staple removal by calling the office at . Avoid all tobacco products. If you need help to stop smoking, call [facility] at . This is a free call. Current Hospital Diet Patient's current hospital diet: Regular Diet Discharge Diet Recommended Diet: Regular Diet Procedures Procedures Performed: Left Total Knee Arthroplasty Pending Studies Studies pending at discharge: no Physician Orders On Transfer Dressing Changes: daily dressing changes, keep incision covered while at rehab facility Additional Orders: PT/OT: Eval & Treat [id number] x 4-6 weeks Dx: S/P Left total knee arthroplasty POLST Discussion: without POLST completion Medical Emergencies . Who to Call and When: Medical Emergencies: If at any time you feel your situation is an emergency, please call 107 immediately. . Non-Emergent Contact Non-Emergency issues call your: Primary Care Provider . . "Provider Documentation" section prepared by Suresh Shaw. . Core Measure Problem Core Measures: VTE VTE Core Measures Date of VTE Diagnosis: Oct 10, 2016 Time of VTE Diagnosis: 08:51 Reason no anticoag overlap I/P: Treatment provided - N/A Reason no anticoag overlap @DC: Treatment provided - N/A [place] Drug Monitoring Program Search Results: no issues identified
[2016-10-10] MEDS: FERROUS GLUCONATE 324 MG TAB PO SCH ×3 (08:53→18:09)
[2016-10-10] MEDS: BECLOMETHASONE DIP HFA 80 MCG 8.7G INH INH SCH ×2 (08:54→20:28)
[2016-10-10] MEDS: DILTIAZEM HCL (TIAzac) 180 MG CAPCR PO SCH (08:54)
[2016-10-10] MEDS: DOCUSATE SODIUM 100 MG CAP PO SCH ×2 (08:54→20:28)
[2016-10-10] MEDS: LISINOPRIL 5 MG TAB PO SCH (08:55)
[2016-10-10] MEDS: ASCORBIC ACID 500 MG TAB PO SCH (08:55)
[2016-10-10] MEDS: MULTIVITAMIN TAB PO SCH (08:55)
[2016-10-10] MEDS: PANTOprazole SOD 40 MG TAB PO SCH (08:56)
[2016-10-10] MEDS: METOPROLOL TARTRATE 25 MG TAB PO SCH ×2 (08:56→20:29)
[2016-10-10] MEDS: ISOSORBIDE MONONITRATE 60 MG TABCR PO SCH (08:56)
[2016-10-10 09:52] VITALS: BP 101/54; PULSE 55; O2SAT 97
[2016-10-10] MEDS: MoRPHine SULFATE 2 MG/ML CARP IV PRN (12:40)
[2016-10-10 15:00] VITALS: BP 116/72; PULSE 70; TEMP 36.8; O2SAT 95
--- NOTE | 2016-10-10 17:19 | Progress Note ---
Subjective Date of Service: Oct 10, 2016. Subjective Pt evaluation today including: conversation w/ patient Pt had a lot of pain related to his L TKA today with and after PT. It made him nauseated, although no emesis. He has not had lunch due to this. Was a bit SOB as well at the time, but now improved. No chest pain. Pt denies fever, abd pain, c/d, LE pain or swelling. Review of Systems All Other Systems: Reviewed and Negative Objective Vital Signs Date Time Temp Pulse Resp B/P (MAP) Pulse Ox O2 Delivery O2 Flow Rate FiO2 10/10/16 15:00 36.8 70 20 116/72 (87) 95 Room Air 10/10/16 09:52 55 97 10/10/16 07:56 96 Room Air 10/10/16 07:55 36.7 79 14 127/84 (98) 96 Room Air 10/10/16 07:35 97 Room Air 10/09/16 23:20 Room Air 10/09/16 23:05 36.8 79 20 117/75 (89) 96 Room Air Physical Exam Comments: General Appearance: obese, no apparent distress Eyes: normal inspection, EOMI Respiratory/Chest: normal breath sounds, no respiratory distress Cardiovascular: regular rate, rhythm, no edema Abdomen: non tender, soft Extremities: non-tender, no pedal edema Neurologic/Psychiatric: alert, normal mood/affect, oriented x 3 Skin: normal color, warm/dry Laboratory Results Last 24 Hours Test 10/10/16 06:41 White Blood Count 12.01 K/uL Red Blood Count 5.08 M/uL Hemoglobin 13.8 g/dL Hematocrit 40.8 % Mean Corpuscular Volume 80.3 fL Mean Corpuscular Hemoglobin 27.2 pg Mean Corpuscular Hemoglobin Concent 33.8 g/dl RDW Standard Deviation 43.6 fL RDW Coefficient of Variation 15.0 % Platelet Count 246 K/uL Mean Platelet Volume 10.1 fL Sodium Level 140 mmol/L Potassium Level 3.9 mmol/L Chloride Level 107 mmol/L Carbon Dioxide Level 30 mmol/L Anion Gap 3.0 mmol/L Blood Urea Nitrogen 15 mg/dl Creatinine 0.88 mg/dl Est Creatinine Clear Calc Drug Dose 162.1 ml/min Estimated GFR () 116.9 Estimated GFR (Non- 100.9 BUN/Creatinine Ratio 16.8 Random Glucose 115 mg/dl Calcium Level 8.6 mg/dl Assessment and Plan 51 y/o M with PMHx of HTN, morbid obesity BMI, Hx of Myocardial infarction x 3, asthma, sleep apnea, ostearthritis, left hip aneurysm, who was admitted for Left TKA by Dr. Giorgi Aaron. Left TKA - Analgesia, DVT ppx with lovenox per the primary team - Bowel regimen in place - PT/OT - Plans for rehab after hospitalization as he does not have help at home, lives alone. CM to assist with discharge planning. - Follow H&H [place] x 3 - Initial cardiac event was in 2008, the second and third MIs he is unable to say when they were. But pt notes his last cardiac intervention was in 2014 where 2 more stents were placed, he now has a total of 5 stents. Pt is unable to tell me if these are bare metal or drug eluting stents. - Continue diltiazem 360 QAM, Imdur 60 mg QAM, metoprolol 12.5 mg BID, lisinopril 5 mg QAM, simvastatin 20 mg QPM Baby aspirin was held prior to procedure. Can resume likely tomorrow if cleared by primary team. - Outpatient personal carer is Dr. Peraza Obstructive Sleep Apnea - Continue to use home cpap machine Asthma - Pts triggers include cold air - last asthma attack was over a year ago. Osteoarthritis - Cont Vit D supplementation Left Hip aneurysm - follows with [facility] in [place], regarding his left hip aneurysm, stable DVT ppx: Teds, scds, lovenox 30 mg subq Q12H Code Status: Full Code Disposition: From home, discharge to rehab when stable per primary team. Denied by insurance for [facility], awaiting eval from another facility tomorrow
[2016-10-10] MEDS: SENNA 8.6 MG TAB PO SCH (20:29)
[2016-10-10] MEDS: SIMVASTATIN 20 MG TAB PO SCH (20:30)
[2016-10-10 22:55] VITALS: BP 102/61; PULSE 79; TEMP 37.4; O2SAT 94
[2016-10-11] MEDS: ACETAMINOPHEN 500 MG TAB PO SCH ×2 (05:15→13:48)
[2016-10-11 06:28] LABS: HEMATOCRIT 37.2 % (42-52); MEAN CELL VOLUME 80.2 fL (80-100); MEAN CORPUSCULAR HEMOGLOBIN 27.4 pg (25-34); MEAN CORPUSCULAR HGB CONC 34.1 g/dl (32-36); MEAN PLATELET VOLUME 10.1 fL (7.4-10.4); PLATELET COUNT 239 K/uL (130-400); RED BLOOD COUNT 4.64 M/uL (4.7-6.1); WHITE BLOOD COUNT 13.66 K/uL (4.8-10.8)
[2016-10-11 07:00] LABS: BUN/CREATININE RATIO 16.1 (10-20); CALCIUM 8.3 mg/dl (8.5-10.1); POTASSIUM 4.1 mmol/L (3.5-5.1)
[2016-10-11 07:15] VITALS: O2SAT 96
--- NOTE | 2016-10-11 08:15 | Progress Note ---
Orthopedic SOAP Note Subjective Date of Service: Oct 11, 2016. Post OP Day: 3 Reports: feeling well, pain controlled w PO medications, Denies: complaints, chest pain, SOB, nausea / vomiting, light headedness, calf pain, using AUDIT DIRECTOR Objective calves soft nontender, N/V intact, capillary refill less than 2 sec., dressing C /D/I, incision C/D/I, A&O x3, toes mobile continues to progress and improve accordingly attempting to improve SLR Date Time Temp Pulse Resp B/P (MAP) Pulse Ox O2 Delivery O2 Flow Rate FiO2 10/10/16 22:55 Room Air 10/10/16 22:55 37.4 79 16 102/61 (75) 94 Room Air 10/10/16 15:45 Room Air 10/10/16 15:00 36.8 70 20 116/72 (87) 95 Room Air 10/10/16 09:52 55 97 Laboratory Results 24 Hours: Last 24 Hours Test 10/11/16 06:00 White Blood Count 13.66 K/uL Red Blood Count 4.64 M/uL Hemoglobin 12.7 g/dL Hematocrit 37.2 % Mean Corpuscular Volume 80.2 fL Mean Corpuscular Hemoglobin 27.4 pg Mean Corpuscular Hemoglobin Concent 34.1 g/dl RDW Standard Deviation 43.8 fL RDW Coefficient of Variation 15.0 % Platelet Count 239 K/uL Mean Platelet Volume 10.1 fL Sodium Level 138 mmol/L Potassium Level 4.1 mmol/L Chloride Level 105 mmol/L Carbon Dioxide Level 28 mmol/L Anion Gap 5.0 mmol/L Blood Urea Nitrogen 16 mg/dl Creatinine 1.00 mg/dl Est Creatinine Clear Calc Drug Dose 142.6 ml/min Estimated GFR () 102.0 Estimated GFR (Non- 88.0 BUN/Creatinine Ratio 16.1 Random Glucose 100 mg/dl Calcium Level 8.3 mg/dl Test 10/11/16 06:00 Hematocrit 37.2 % Hemoglobin 12.7 g/dL Assessment day 3 s/p Left TKA Plan continue post op care pain control with prescribed medications PT/OT resume diet ice/elevate dressing changed post op day 2 and daily thereafter WBAT left LE with walker and assist DC knee immobilizer DVT prophylaxis with Lovenox 30mg BID x 3 weeks then switch to ASA 325mg BID for 3 weeks additionally appreciate medicine's input discharge planning, awaiting approval/auth regarding rehab facility will discuss findings further with Dr. Aaron.
--- NOTE | 2016-10-11 08:29 | Discharge Summary ---
Orthopedic Discharge Summary Admission Date/Reason Oct 08, 2016 at 09:50 Left Knee Osteoarthritis #686. Discharge Date/Disposition Oct 10, 2016 Rehab Diagnosis Principal Diagnosis: Left knee DJD Secondary Diagnoses/Problems: s/p Left TKA Procedure(s) Performed Left total knee arthroplasty Consultations Hospitalist - Dr. Moore Medication Reconciliation New Medications: Enoxaparin (Lovenox) 30 Mg/0.3 Ml Inj 30 MG SQ Q12 for 21 Days Oxycodone/Acetaminophen 5MG/325MG (Percocet 5MG/325MG) Tab 1-2 TABLETS PO Q4 PRN for Pain, #36 TAB Ascorbic Acid (Vitamin C) 500 Mg Tab 500 MG PO QAM for 30 Days, #30 TAB Ferrous Gluconate (Ferrous Gluconate) 324 Mg Tab 324 MG PO TIDM for 30 Days, TAB Continued Medications: Albuterol Hfa (Ventolin Hfa) 200 Puffs/18531 Mcg Aers 2-4 PUFFS INH Q6H PRN for PRN, #1 INHALER Aspirin (Aspirin Ec) 81 Mg Tab 81 MG PO QAM Beclomethasone Dip (Qvar) 80 Mcg/Act Aer 3 PUFFS INH BID BRAND SPECIFIC PER PT-SPOKE WITH [facility] BRAND NAME IS AVAILABLE FOR PT FOR SURG Diltiazem Hcl Ext Rel (Tiazac) 360 Mg Capcr 360 MG PO QAM, CAP Gabapentin (Neurontin) 300 Mg Cap 300 MG PO HS PRN for Pain, CAP Isosorbide Mononitrate Ext Rel (Imdur Ext Rel) 60 Mg Ertab 60 MG PO QAM, TAB Lisinopril (Lisinopril) 5 Mg Tab 5 MG PO QAM Metoprolol Tartrate (Lopressor) (Lopressor) 25 Mg Tab 12.5 MG PO BID, TAB Nitroglycerin (Nitrostat) 0.4 Mg Tab 0.4 MG UT PRN, BTL Pantoprazole (Protonix) 40 Mg Tab 40 MG PO QAM, #30 TAB Simvastatin (Zocor) 20 Mg Tab 20 MG PO HS, TAB Discontinued Medications: Naproxen (Naprosyn) 500 Mg Tab 500 MG PO BID PRN for PRN, TAB Admission Physical Exam As per Admitting History & Physical. Hospital Course 51 year old male with a long a history of left knee pain that failed conservative management. Surgery was scheduled and Zabrina underwent a Left total knee arthroplasty on 10/08/[address] Giorgi Aaron MD from [facility]. He tolerated the procedure well and improved post-operatively to where he could be transferred to a rehab facility on 10/11/16. The patient was also evaluated by Medicine. Discharge Instructions Please refer to the electronic Patient Visit Report (Discharge Instructions) for additional information.
[2016-10-11 08:33] VITALS: BP 107/73; PULSE 80; TEMP 37; O2SAT 96
[2016-10-11] MEDS: ENOXAPARIN 30 MG/0.3 ML SYR SQ SCH (08:58)
[2016-10-11] MEDS: FERROUS GLUCONATE 324 MG TAB PO SCH ×2 (08:58→12:30)
[2016-10-11 09:45] VITALS: BP 135/80; PULSE 88
[2016-10-11] MEDS: BECLOMETHASONE DIP HFA 80 MCG 8.7G INH INH SCH (09:48)
[2016-10-11] MEDS: DOCUSATE SODIUM 100 MG CAP PO SCH (09:48)
[2016-10-11] MEDS: ISOSORBIDE MONONITRATE 60 MG TABCR PO SCH (09:49)
[2016-10-11] MEDS: METOPROLOL TARTRATE 25 MG TAB PO SCH (09:49)
[2016-10-11] MEDS: DILTIAZEM HCL (TIAzac) 180 MG CAPCR PO SCH (09:50)
[2016-10-11] MEDS: MULTIVITAMIN TAB PO SCH (09:50)
[2016-10-11] MEDS: ASCORBIC ACID 500 MG TAB PO SCH (09:51)
[2016-10-11] MEDS: LISINOPRIL 5 MG TAB PO SCH (09:51)
[2016-10-11] MEDS: OXYCODONE HCL IR 5 MG TAB (IMMEDIATE RELEASE) PO PRN (09:54)
[2016-10-11] MEDS: PANTOprazole SOD 40 MG TAB PO SCH (09:58)
[2016-10-11 10:08] VITALS: BP 135/80; PULSE 88; O2SAT 96
[2016-10-11 13:26] VITALS: BP 135/80; PULSE 88; TEMP 37; O2SAT 96
--- NOTE | 2016-10-11 15:59 | Progress Note ---
Subjective Date of Service: Oct 11, 2016. Subjective Pt evaluation today including: conversation w/ patient, physical exam, chart review, lab review, review of studies, review of inpatient medication list Review of Systems Constitutional: No fever, No chills Respiratory: No cough, No sputum, No wheezing, No shortness of breath, No dyspnea on exertion Cardiac: No chest pain, No orthopnea, No PND, No edema, No claudication Abdomen: No pain, No nausea, No vomiting, No diarrhea Musculoskeletal: + joint pain, No muscle pain, No swelling Male : No dysuria, No urinary frequency, No incontinence Neurologic: No memory loss, No paralysis, No weakness, No numbness/tingling Psychiatric: No depression symptoms, No anhedonism, No anxiety, No insomnia Skin: No rash, No itch Objective Vital Signs Date Time Temp Pulse Resp B/P (MAP) Pulse Ox O2 Delivery O2 Flow Rate FiO2 10/11/16 13:26 37.0 88 18 96 Room Air 10/11/16 10:08 88 96 10/11/16 09:45 88 135/80 (98) 10/11/16 08:33 37.0 80 18 107/73 (84) 96 Room Air 10/11/16 07:15 96 Room Air 10/10/16 22:55 Room Air 10/10/16 22:55 37.4 79 16 102/61 (75) 94 Room Air Physical Exam General Appearance: WD/WN, no apparent distress Eyes: normal inspection, PERRL, EOMI, sclerae normal Neck: supple, no adenopathy, thyroid normal Respiratory/Chest: chest non-tender, lungs clear, normal breath sounds, no respiratory distress Cardiovascular: regular rate, rhythm, no edema, no gallop, no JVD Abdomen: normal bowel sounds, non tender, soft, no organomegaly Extremities: normal range of motion, non-tender, normal inspection, no pedal edema Neurologic/Psychiatric: no motor/sensory deficits, alert, normal mood/affect, oriented x 3 Laboratory Results Last 24 Hours Test 10/11/16 06:00 White Blood Count 13.66 K/uL Red Blood Count 4.64 M/uL Hemoglobin 12.7 g/dL Hematocrit 37.2 % Mean Corpuscular Volume 80.2 fL Mean Corpuscular Hemoglobin 27.4 pg Mean Corpuscular Hemoglobin Concent 34.1 g/dl RDW Standard Deviation 43.8 fL RDW Coefficient of Variation 15.0 % Platelet Count 239 K/uL Mean Platelet Volume 10.1 fL Sodium Level 138 mmol/L Potassium Level 4.1 mmol/L Chloride Level 105 mmol/L Carbon Dioxide Level 28 mmol/L Anion Gap 5.0 mmol/L Blood Urea Nitrogen 16 mg/dl Creatinine 1.00 mg/dl Est Creatinine Clear Calc Drug Dose 142.6 ml/min Estimated GFR () 102.0 Estimated GFR (Non- 88.0 BUN/Creatinine Ratio 16.1 Random Glucose 100 mg/dl Calcium Level 8.3 mg/dl Assessment and Plan 51 y/o M with PMHx of HTN, morbid obesity BMI, Hx of Myocardial infarction x 3, asthma, sleep apnea, ostearthritis, left hip aneurysm, who was admitted for Left TKA by Dr. Giorgi Aaron. Left TKA - Analgesia, DVT ppx with lovenox per the primary team - Bowel regimen in place - PT/OT - Plans for rehab after hospitalization as he does not have help at home, lives alone. CM to assist with discharge planning. - Follow H&H ID x 3 - Initial cardiac event was in 2008, the second and third MIs he is unable to say when they were. But pt notes his last cardiac intervention was in 2014 where 2 more stents were placed, he now has a total of 5 stents. Pt is unable to tell me if these are bare metal or drug eluting stents. - Continue diltiazem 360 QAM, Imdur 60 mg QAM, metoprolol 12.5 mg BID, lisinopril 5 mg QAM, simvastatin 20 mg QPM Baby aspirin was held prior to procedure. Can resume likely tomorrow if cleared by primary team. - Outpatient investigator cash shortage is Dr. Peraza Obstructive Sleep Apnea - Continue to use home cpap machine Asthma - Pts triggers include cold air - last asthma attack was over a year ago. Osteoarthritis - Cont Vit D supplementation Left Hip aneurysm - follows with [facility] in [place], regarding his left hip aneurysm, stable DVT ppx: Teds, scds, lovenox 30 mg subq Q12H Code Status: Full Code
== END 2016-10-11 14:37 | DRG 470 ==
LOC: C.ACU 09:14 → C.MSN 09:50 → ENRESERV 16:48
PROVIDERS: ADMIT Orthopaedic Surgery Sports Medicine; ATTEND Orthopaedic Surgery Sports Medicine
PROC: 0SRD0J9 Replacement of Left Knee Joint with Synthetic Substitute, Cemented, Open Approach (ICD-10-PCS; principal; 2016-10-08 10:30)
DX: M17.12 Unilateral primary osteoarthritis, left knee (principal); Z68.43 Body mass index [BMI] 50.0-59.9, adult; I10 Essential (primary) hypertension; E66.01 Morbid (severe) obesity due to excess calories; J45.909 Unspecified asthma, uncomplicated; G47.33 Obstructive sleep apnea (adult) (pediatric); E78.5 Hyperlipidemia, unspecified; I25.10 Atherosclerotic heart disease of native coronary artery without angina pectoris; M54.5 Low back pain; G62.9 Polyneuropathy, unspecified; I25.2 Old myocardial infarction; Z86.79 Personal history of other diseases of the circulatory system; Z79.82 Long term (current) use of aspirin; Z79.51 Long term (current) use of inhaled steroids; Z95.5 Presence of coronary angioplasty implant and graft; Z99.89 Dependence on other enabling machines and devices; Z79.1 Long term (current) use of non-steroidal anti-inflammatories (NSAID)

== ENCOUNTER 2016-10-28 14:44 | Emergency (ER) | payer OTHER ==
[~2016-10-28] VITALS: Ht 180.3 cm; Wt 169.0 kg
[~2016-10-28 14:44] MED LIST changes: +ASCA500 PO; -CEFAZOLIN 3000 MG/65 ML D5W 65 ML IV SCH; +FRRG PO; -LACTATED RINGER'S 1000ML 1,000 ML IV SCH; -LACTATED RINGER'S 1000ML 500 ML IV ONE; +LVNIS30 SQ; -MIDAZOLAM HCL 1 MG/ML 2ML VIAL ONE; -NAPR-1169 PO; +OXYC-57 PO; -ROPIVACAINE 5MG/ML 30 ML 150 MG, BUPIVACAINE/EPINEPHR 0.5% MPF 30 ML, KETOROLAC TROMETH... INFIL SCH
[2016-10-28 14:49] VITALS: TEMP 36.6; Ht 180.3 cm; Wt 169.0 kg
--- NOTE | 2016-10-28 15:03 | EMERGENCY ROOM VISIT NOTE ---
History Report prepared by George: Ruben Barkley Under the Supervision of: Dr. Luc Aly M.D. First contact with patient: 14:54 Chief Complaint: KNEEPAIN Stated Complaint: CLICKIN IN KNEE History of Present Illness The patient is a 51 year old male who presents to the Emergency Room with complaints of persistent left knee pain that started yesterday. He notes that he had a total left knee replacement by Dr. Aaron on October 08. The patient says that he was icing his left leg yesterday, and was straightening his leg when he started noticing pain, and he felt like something was bulging out on the outside of his knee. The patient adds that he could hardly bend the leg. He says that when he got up this morning, his left knee was clicking. He states that he took his pain medication around 2 hours ago. He says that he has been using his walker, and has been getting around okay with it since the pain started. Source of History: patient Onset: Yesterday Position: knee (left) Quality: other (pain) Timing: other (persistent) Note: Associated symptoms: Feels like something bulging on outside of left knee. Can hardly bend leg. Left knee clicking starting this morning. Review of Systems See HPI for pertinent positives & negatives. A total of 10 systems reviewed and were otherwise negative. Past Medical & Surgical Medical Problems: (1) Heart disease Surgical Problems: (1) Status post total left knee replacement Family History Heart disease Social History Smoking Status: Never Smoker Alcohol Use: occasionally Drug Use: none Housing Status: lives alone Occupation Status: employed Current/Historical Medications Scheduled Ascorbic Acid (Ascorbic Acid), 500 MG PO DAILY Aspirin (Aspirin Ec), 81 MG PO QAM Beclomethasone Dip (Qvar), 3 PUFFS INH BID Diltiazem Hcl Ext Rel (Tiazac), 360 MG PO QAM Enoxaparin (Lovenox), 30 MG SQ Q12H Ferrous Gluconate (Ferrous Gluconate), 324 MG PO TIDM Isosorbide Mononitrate Ext Rel (Imdur Ext Rel), 60 MG PO QAM Lisinopril (Lisinopril), 5 MG PO QAM Metoprolol Tartrate (Lopressor) (Lopressor), 12.5 MG PO BID Multivitamins/Minerals (Cerovite Advanced Formula), 1 TAB PO DAILY Nitroglycerin (Nitrostat), 0.4 MG UT PRN Pantoprazole (Protonix), 40 MG PO QAM Senna (Senokot), 2 TAB PO HS Simvastatin (Zocor), 20 MG PO HS Scheduled PRN Albuterol (Ventolin Hfa), 2 PUFFS INH Q4H PRN for SOB/Wheezing Gabapentin (Neurontin), 300 MG PO HS PRN for Pain Oxycodone/Acetaminophen 5MG/325MG (Percocet 5MG/325MG), 1-2 TABLETS PO Q4H PRN for Pain Allergies Coded Allergies: NO KNOWN DRUG ALLERGIES (Verified Allergy, Unknown, NONE, 10/08/16) Unclassified Drugs (Verified Allergy, Unknown, NEOPRENE KNEE BRACE-RASH SKIN IRRITATION, 10/08/16) Physical Exam Vital Signs Date Time Temp Pulse Resp B/P (MAP) Pulse Ox O2 Delivery O2 Flow Rate FiO2 10/28/16 16:45 81 18 125/70 97 10/28/16 14:49 36.6 83 18 124/77 97 Room Air Physical Exam GENERAL: Patient is a healthy-appearing well-nourished 51 year old male. HEAD: Normocephalic atraumatic EYES: Ocular movements intact pupils equal and react to light OROPHARYNX mucous membranes are moist no exudates present no erythema or edema present NECK: Supple no nuchal rigidity CHEST: Good equal expansion LUNGS: Clear and equal to auscultation CARDIAC: Normal S1 and S2 ABDOMEN: Soft nontender no guarding BACK: No CVA tenderness EXTREMITIES: Surgical scar in place around left knee. Surgery strips intact. Appears to be healing well, no evidence of infection. Good range of motion of knee, hip, and ankle, all free from pain. NEURO: Patient is following commands and answering questions appropriately. Alert and oriented x3 Cranial Nerves 2-12 grossly intact Medical Decision & Procedures ER Provider Diagnostic Interpretation: X-ray results as stated below per interpretation by me and the radiologist: LEFT KNEE 1 OR 2 VIEWS ROUTINE HISTORY: 51 years-old Male Pt c/o left knee pain acute left knee pain with clicking sensation. History of recent left total knee arthroplasty. COMPARISON: Knee radiographs 10/08/2016 TECHNIQUE: Frontal and lateral views of the left knee FINDINGS: Left total knee arthroplasty with patellar resurfacing noted. There is a large joint effusion without acute fracture or dislocation. No malalignment or evidence of hardware complication. Periarticular densities are seen adjacent to the lateral joint space. IMPRESSION: 1. Large knee joint effusion without acute bony abnormality. 2. Left knee arthroplasty and patellar resurfacing noted without complication. The above report was generated using voice recognition software. It may contain grammatical, syntax or spelling errors. Electronically signed by: Glen Rice M.D. 10/28/2016 4:08 PM Dictated Date/Time: 10/28/2016 4:07 PM ED Course 1456: Past medical records reviewed. The patient was evaluated in room B11B. A complete history and physical examination was performed. 1615: Upon reexamination the patient is resting comfortably. I discussed results and treatment plan with the patient. He verbalizes agreement and understanding. The patient is ready for discharge. Medical Decision Differential diagnosis: Etiologies such as fracture, dislocation, neurovascular compromise, compartment syndrome, soft tissue injury, as well as others were entertained. This is a 51-year-old male presents emergency department complaining of a clicking sensation in his left knee. This was recently replaced by the orthopedist. X-rays do not show any evidence of fracture dislocation or subluxation. The patient is mostly on my physical examination. There is no evidence of infection. Based on these findings I felt that the patient can be safely discharged home for follow-up orthopedics. Patient was in agreement with the treatment plan. Medication Reconcilliation Current Medication List: was personally reviewed by me Blood Pressure Screening Patient's blood pressure: Normal blood pressure Impression Primary Impression: Knee pain Scribe Attestation The scribe's documentation has been prepared under my direction and personally reviewed by me in its entirety. I confirm that the note above accurately reflects all work, treatment, procedures, and medical decision making performed by me. Departure Information Dispostion Home / Self-Care Referrals Kinza Guillen M.D. (PCP) Giorgi Aaron MD Forms HOME CARE DOCUMENTATION FORM, IMPORTANT VISIT INFORMATION, School Instructions, Work Instructions Patient Instructions [facility] Additional Instructions Follow up with Dr Aaron's office You have been examined and treated today on an emergency basis only. This is not a substitute for, or an effort to provide, complete comprehensive medical care. It is impossible to recognize and treat all injuries or illnesses in a single emergency department visit. It is therefore important that you follow up closely with Dr Guillen. Call as soon as possible for an appointment. Thank you for your time and consideration. I look forward to speaking with you again soon. Please don't hesitate to call us if you have any questions. Problem Qualifiers Primary Impression: Knee pain Chronicity: acute Laterality: left Qualified Codes: M25.562 - Pain in left knee
[2016-10-28] MEDS ORDERED: MULT-878 PO (15:37)
[2016-10-28] MEDS ORDERED: SENN-61 PO (15:38)
[2016-10-28] MEDS ORDERED: ASCO500T16 PO (15:39)
[2016-10-28] MEDS ORDERED: OXYC-57 PO (15:41)
[2016-10-28] MEDS ORDERED: PRVHFAIN INH (15:43)
[2016-10-28] MEDS ORDERED: ENOX30IN4 SQ (15:44)
--- NOTE | 2016-10-28 16:10 | DIAGNOSTIC IMAGING REPORT ---
LEFT KNEE 1 OR 2 VIEWS ROUTINE HISTORY: 51 years-old Male Pt c/o left knee pain acute left knee pain with clicking sensation. History of recent left total knee arthroplasty. COMPARISON: Knee radiographs 10/08/2016 TECHNIQUE: Frontal and lateral views of the left knee FINDINGS: Left total knee arthroplasty with patellar resurfacing noted. There is a large joint effusion without acute fracture or dislocation. No malalignment or evidence of hardware complication. Periarticular densities are seen adjacent to the lateral joint space. IMPRESSION: 1. Large knee joint effusion without acute bony abnormality. 2. Left knee arthroplasty and patellar resurfacing noted without complication. The above report was generated using voice recognition software. It may contain grammatical, syntax or spelling errors. Electronically signed by: Glen Rice M.D. 10/28/2016 4:08 PM Dictated Date/Time: 10/28/2016 4:07 PM
[2016-10-28 16:45] VITALS: BP 125/70; PULSE 81; O2SAT 97
== END 2016-10-28 16:47 | disposition home or self-care (01) ==
LOC: C.EDB 14:45
DX: M25.562 Pain in left knee (principal); Z96.652 Presence of left artificial knee joint; I51.9 Heart disease, unspecified; Z82.49 Family history of ischemic heart disease and other diseases of the circulatory system; Z79.82 Long term (current) use of aspirin; Z79.899 Other long term (current) drug therapy

== ENCOUNTER → 2016-11-19 | Outpatient (CLI) | payer OTHER ==
[~2016-11-19] MED LIST changes: -ASCA500 PO; +ASCO500T16 PO; +ENOX30IN4 SQ; -LVNIS30 SQ; +MULT-878 PO; +PRVHFAIN INH; +SENN-61 PO; -VNTHFA/IN INH
== END | disposition home or self-care (01) ==
LOC: C.RDSM 14:05
PROVIDERS: ATTEND Orthopaedic Surgery Sports Medicine
DX: Z09 Encounter for follow-up examination after completed treatment for conditions other than malignant neoplasm (principal)

== ENCOUNTER 2017-03-11 04:52 | Inpatient (IN) | payer OTHER ==
[2017-02-19 14:21] VITALS: BMI 52.0
--- NOTE | 2017-02-19 14:52 | PAT Medication Instructions ---
Service Date Feb 19, 2017. Current Home Medication List Albuterol (Ventolin Hfa), 2 PUFFS INH Q4H PRN for SOB/Wheezing Aspirin (Aspirin Ec), 81 MG PO QAM Beclomethasone Dip (Qvar), 3 PUFFS INH BID Diltiazem Hcl Ext Rel (Tiazac), 360 MG PO QAM Gabapentin (Neurontin), 300 MG PO HS PRN for Pain Ibuprofen (Advil), 400 MG PO QID PRN for RN Isosorbide Mononitrate Ext Rel (Imdur Ext Rel), 60 MG PO QAM Lisinopril (Lisinopril), 5 MG PO QAM Metoprolol Tartrate (Lopressor) (Lopressor), 12.5 MG PO BID Nitroglycerin (Nitrostat), 0.4 MG UT PRN Pantoprazole (Protonix), 40 MG PO QAM Simvastatin (Zocor), 20 MG PO HS Medication Instructions For Your Scheduled Surgery - Check with surgeon for instructions: Ibuprofen (Advil), 400 MG PO QID PRN for RN - Hold the following medications the morning of surgery: Lisinopril (Lisinopril), 5 MG PO QAM - Take the following medications the morning of surgery with a sip of water: Metoprolol Tartrate (Lopressor) (Lopressor), 12.5 MG PO BID Nitroglycerin (Nitrostat), 0.4 MG UT PRN (if needed) Pantoprazole (Protonix), 40 MG PO QAM Diltiazem Hcl Ext Rel (Tiazac), 360 MG PO QAM Beclomethasone Dip (Qvar), 3 PUFFS INH BID Albuterol (Ventolin Hfa), 2 PUFFS INH Q4H PRN for SOB/Wheezing (if needed) Isosorbide Mononitrate Ext Rel (Imdur Ext Rel), 60 MG PO QAM Aspirin (Aspirin Ec), 81 MG PO QAM - Take the following medications as scheduled the night before surgery: Gabapentin (Neurontin), 300 MG PO HS PRN for Pain (if needed) Simvastatin (Zocor), 20 MG PO HS Metoprolol Tartrate (Lopressor) (Lopressor), 12.5 MG PO BID Nitroglycerin (Nitrostat), 0.4 MG UT PRN (if needed) Beclomethasone Dip (Qvar), 3 PUFFS INH BID Albuterol (Ventolin Hfa), 2 PUFFS INH Q4H PRN for SOB/Wheezing (if needed) If you have any questions please call us at [phone] or [phone] or [phone]
[2017-02-19 15:08] LABS: BASO % 0.9 %; BASO ABS # 0.08 K/uL (0-0.2); EOS % 3.3 %; EOS ABS # 0.29 K/uL (0-0.5); HEMOGLOBIN 15.7 g/dL (14.0-18.0); IG# 0.04 K/uL (0.00-0.02); LYMPH % 25.1 %; LYMPH ABS # 2.22 K/uL (1.2-3.4); MEAN CELL VOLUME 81.6 fL (80-100); MEAN CORPUSCULAR HEMOGLOBIN 27.8 pg (25-34); MEAN CORPUSCULAR HGB CONC 34.1 g/dl (32-36); MEAN PLATELET VOLUME 10.2 fL (7.4-10.4); MONO % 13.1 %; MONO ABS # 1.16 K/uL (0.11-0.59); NEUT % 57.1 %; NEUT ABS # 5.04 K/uL (1.4-6.5); PLATELET COUNT 292 K/uL (130-400); RED CELL DISTRIBUTION WIDTH CV 14.7 % (11.5-14.5); RED CELL DISTRIBUTION WIDTH SD 43.2 fL (36.4-46.3); WHITE BLOOD COUNT 8.83 K/uL (4.8-10.8)
[2017-02-19 15:17] LABS: PTT PATIENT 25.2 SECONDS (21.0-31.0)
[2017-02-19 15:58] LABS: CALCIUM 8.7 mg/dl (8.5-10.1); CREATININE 0.9 mg/dl (0.60-1.40); POTASSIUM 4.4 mmol/L (3.5-5.1)
--- NOTE | 2017-02-28 15:26 | Progress Note ---
Progress Note Date of Service Feb 28, 2017. Progress Note History & Physical Date Sep 12, 2016. Chief Complaint Right knee pain History of Present Illness The patient is a 51 year old male with complaints of right knee pain that has failed conservative measures, such as rest, ice, therapy, behavior modification , oral analgesics and antiinflammatories, along with intraarticular joint injection. The pain effects his life on a daily basis and makes it difficult to perform certain ADL's and elective activity. The pain is also worse with activity but also presents at rest. Denies any recent injuries or falls. Denies calf pain or numbness/tingling in the distal extremity. Past Medical/Surgical History Past Medical History: 1) HTN 2) Obesity 3) H/O UT x 3 4) Left hip aneurysm, followed by [facility] in [place] 5) Asthma 6) Sleep apnea - with CPAP 7) Osteoarthritis Past Surgical History: 1) Stent placement/heart catheterization x 5 2) Left knee arthroscopy x 3 3) Right knee arthroscopy x 3 4) Left shoulder, s/p labrum repair 5) Appendectomy 6) Tonsillectomy 7) Left Total Knee Arthroplasty 2017- Dr. Aaron Social History: 1) Admits to 5 alcoholic beverages per week. Denies tobacco or illegal drug use. Review of systems: Denies headache, chest pain, shortness of breath, fevers, chills, night sweats Additional History Hepatic Disease: No Endocrine Disorder: No Kidney Disease: No Hypertension: Yes Heart Disease: Yes Bleeding Tendencies: No Infectious Diseases: No Allergies Coded Allergies: NO KNOWN DRUG ALLERGIES (Verified Allergy, Unknown, NONE, 09/12/16) Unclassified Drugs (Verified Allergy, Unknown, NEOPRENE KNEE BRACE-RASH SKIN IRRITATION, 09/12/16) Home Medications Scheduled Aspirin (Aspirin Ec), 81 MG PO QAM Beclomethasone Dip (Qvar), 3 PUFFS INH BID Diltiazem Hcl Ext Rel (Tiazac), 360 MG PO QAM Isosorbide Mononitrate Ext Rel (Imdur Ext Rel), 60 MG PO QAM Lisinopril (Lisinopril), 5 MG PO QAM Metoprolol Tartrate (Lopressor) (Lopressor), 12.5 MG PO BID Nitroglycerin (Nitrostat), 0.4 MG UT PRN Pantoprazole (Protonix), 40 MG PO QAM Simvastatin (Zocor), 20 MG PO HS Scheduled PRN Albuterol Hfa (Ventolin Hfa), 2-4 PUFFS INH Q6H PRN for PRN Gabapentin (Neurontin), 300 MG PO HS PRN for Pain Naproxen (Naprosyn), 500 MG PO BID PRN for PRN Physical Examination Skin: warm/dry, no rash, + pertinent finding (mild abrasions noted about the left lower extremity due to extended knee brace wear, has DC'd the brace until this clears, not infectious or full thickness, no further attention or treatment required other than removing offending agent. No erythema or effusion of the left knee. ) Eyes: normal inspection, EOMI, sclerae normal, + pertinent finding (wears glasses for driving ) ENT: normal ENT inspection, pharynx normal Head: normocephalic, atraumatic Neck: supple, no adenopathy Respiratory/Chest: lungs clear, normal breath sounds, no respiratory distress Cardiovascular: regular rate, rhythm, no edema, no murmur Abdomen / GI: normal bowel sounds, non tender, + pertinent finding (rounded) Extremities: + pertinent finding (Right knee range of motion reveals full extension , flexion of 95 degees with pain at endpoints, jointline tenderness, extensor mechanism intact, ligamentously stable) Neurologic/Psych: no motor/sensory deficits, alert, oriented x 3 Radiology Images: Right knee xrays: joint space narrowing, periarticular osteophytosis, sclerotic bone change, no evidence of subchondral cyst formation, no fractures or masses otherwise Diagnosis Right knee DJD Plan of Treatment Zabrina will undergo a Right total knee arthroplasty by Dr. Giorgi Aaron MD from [facility] 03/11/17 at the [facility]. Zabrina obtained preoperative clearance through his PCP Dr. Guillen 09/26/16, Tube Dispatcher Dr. Peraza 09/17/16, and [facility] in [place] 09/19/16 regarding his left hip aneurysm, which has remained stable. No new clearances are necessary prior to this procedure. Medications upon discharge will include Percocet for pain and Lovenox 30mg BID for DVT prophylaxis. Zabrina has a walker from his previous surgery to use post operatively. The patient is requesting to go home with out patient PT at [facility] after this procedure. He did go to and inpatient rehab after the last procedure but feels he will be fine to go home after this one. There will be a 2 week follow up appointment with Dr. Aaron for staple removal. He will have pre-admission testing and will require a pre-operative CBC, PT/PTT, PRP, UA, CXR and EKG prior to this procedure. Any other questions please notify [facility] at [phone].
[2017-03-11] VITALS (8 sets, daily range): BP systolic 112–148; BP diastolic 67–81; PULSE 52–88; TEMP 36.3–36.9; O2SAT 92–99; Ht 180.3 cm; Wt 170.9 kg
[~2017-03-11] VITALS: Ht 180.3 cm; Wt 170.9 kg
[~2017-03-11 04:52] MED LIST changes: -ASCO500T16 PO; -ENOX30IN4 SQ; -FRRG PO; +IBUP-1050 PO; -MULT-878 PO; -OXYC-57 PO; -SENN-61 PO
[2017-03-11] MEDS ORDERED: LACTATED RINGER'S 1000ML 1,000 ML IV SCH (06:00)
[2017-03-11] MEDS ORDERED: ACETAMINOPHEN 500 MG TAB PO SCH (06:00)
[2017-03-11] MEDS ORDERED: LACTATED RINGER'S 1000ML IV SCH (06:00)
[2017-03-11] MEDS ORDERED: LACTATED RINGER'S 1000ML 500 ML IV SCH (06:00)
[2017-03-11] MEDS ORDERED: ROPIVACAINE 5MG/ML 30 ML 150 MG, BUPIVACAINE/EPINEPHR 0.5% MPF 30 ML, KETOROLAC TROMETH... INFIL SCH ×7 (06:00)
[2017-03-11] MEDS ORDERED: TRANEXAMIC ACID INJ 1,000 MG in SYRINGE 0 ML IV SCH (06:00)
[2017-03-11] MEDS ORDERED: GABAPENTIN 300 MG CAP PO SCH (06:00)
[2017-03-11] MEDS ORDERED: CeleBREX 200 MG CAP PO SCH (06:00)
[2017-03-11] MEDS ORDERED: CEFAZOLIN 3000MG IV PUSH 15 ML IV SCH (06:00)
[2017-03-11] MEDS ORDERED: ROPIVACAINE 5MG/ML 30 ML 150 MG, BUPIVACAINE 0.5% MPF INJ 30 ML, EpINEphrine HCL INJ 0.... INFIL SCH ×8 (06:00)
[2017-03-11] MEDS ORDERED: FAMOTIDINE 20 MG TAB PO SCH (06:00)
[2017-03-11] MEDS ORDERED: SCOPOLAMINE 1.5 MG TDSY TD SCH (06:00)
[2017-03-11] MEDS ORDERED: BUPIVACAINE 0.25% 30 ML VIAL ONE (06:15)
[2017-03-11] MEDS ORDERED: BUPIVACAINE 0.5 % 5 MG/1 ML PF 10ML VIAL ONE (06:15)
[2017-03-11] MEDS ORDERED: POVIDONE-IODINE OP SOLN 30 ML BTL ONE (06:28)
[2017-03-11] MEDS ORDERED: ORTHO JOINT ANESTHETIC ONE (06:28)
[2017-03-11] MEDS ORDERED: FENTANYL CITRATE INJ 50 MCG/1 ML 2 ML VIAL ONE ×2 (06:40→10:28)
[2017-03-11] MEDS ORDERED: MIDAZOLAM HCL 1 MG/ML 2ML VIAL ONE ×3 (06:40→09:46)
[2017-03-11] MEDS ORDERED: LIDOCAINE HCL 2% 2 ML VIAL (20MG/ML) ONE (07:32)
[2017-03-11] MEDS ORDERED: PROPOFOL IV EMULSION 10 MG/ML 20 ML VIAL IV ONE ×4 (07:32→10:35)
[2017-03-11] MEDS ORDERED: EpHEDrine SULFATE INJ 50 MG/ML AMP IV PRN (08:15)
[2017-03-11] MEDS ORDERED: ATROPINE SULFATE 0.1 MG/ML 5ML SYR IV PRN (08:15)
[2017-03-11] MEDS ORDERED: EpHEDrine SULFATE 50MG/5ML SYR ONE (09:35)
[2017-03-11] MEDS ORDERED: ONDANSETRON INJ 2 MG/ML 2 ML VIAL ONE (10:43)
--- NOTE | 2017-03-11 11:15 | [facility] Post Operative Brief Note ---
Immediate Operative Summary Operative Date Mar 11, 2017. Pre-Operative Diagnosis Right Knee Osteoarthritis Post-Operative Diagnosis Same as preop Procedure(s) Performed Right Total Knee Arthroplasty Surgeon Dr. Aaron Program Management Analyst Surgeon(s) Trevin Calderón Fellow Estimated Blood Loss 150 ML Findings Severe DJD Right Knee Fluids (cc crystalloids) 2300 Specimens A. Right Knee Bone and Tissue Drains n/a Anesthesia Spinal + femoral Nerve block Complication(s) None Disposition Recovery Room / PACU (Stable)
[2017-03-11] MEDS ORDERED: ALUMINUM/MAGNESIUM/SIMETH (MAALOX MAX) 30 ML UDC PO PRN (11:30)
[2017-03-11] MEDS ORDERED: MoRPHine SULFATE 2 MG/ML CARP IV PRN ×2 (11:30→13:15)
[2017-03-11] MEDS ORDERED: TAMSULOSIN HCL 0.4 MG CAP PO PRN (11:30)
[2017-03-11] MEDS ORDERED: BISACODYL 10 MG SUPP PR PRN (11:30)
[2017-03-11] MEDS ORDERED: METOCLOPRAMIDE HCL INJ 5 MG/ML 2 ML VIAL IV PRN (11:30)
[2017-03-11] MEDS ORDERED: ONDANSETRON INJ 2 MG/ML 2 ML VIAL IV PRN (11:30)
[2017-03-11] MEDS ORDERED: MAGNESIUM HYDROXIDE SUSP 30 ML UDC PO PRN (11:30)
[2017-03-11] MEDS ORDERED: GABAPENTIN 300 MG CAP PO PRN (12:00)
[2017-03-11] MEDS ORDERED: NITROGLYCERIN 0.4 MG SL PER TAB CHARGE UT SCH (12:00)
[2017-03-11] MEDS ORDERED: ALBUTEROL HFA 8 GM INHALER INH PRN (12:00)
--- NOTE | 2017-03-11 12:04 | Anesthesiology Progress Note ---
Anesthesia Post Op Note Date & Time Mar 11, 2017 at 12:04 Vital Signs Pain Intensity: 0 Vital Signs Past 12 Hours Date Time Temp Pulse Resp B/P (MAP) Pulse Ox O2 Delivery O2 Flow Rate FiO2 03/11/17 11:50 36.2 67 16 135/69 96 Nasal Cannula 3 03/11/17 11:40 70 16 123/62 96 Nasal Cannula 3 03/11/17 11:30 66 16 120/68 97 Nasal Cannula 3 03/11/17 11:23 36.0 70 16 120/74 94 Nasal Cannula 3 03/11/17 05:30 36.6 52 20 128/81 95 Room Air Notes Mental Status: alert / awake / arousable, participated in evaluation Pt Amnestic to Procedure: Yes Nausea / Vomiting: adequately controlled Pain: adequately controlled Airway Patency, RR, SpO2: stable & adequate BP & HR: stable & adequate Hydration State: stable & adequate Neuraxial Anesthesia: was administered, sensory block is resolving Anesthetic Complications: no major complications apparent
--- NOTE | 2017-03-11 12:05 | DIAGNOSTIC IMAGING REPORT ---
R KNEE 1 OR 2 VIEWS ROUTINE CLINICAL HISTORY: Postoperative evaluation. COMPARISON: Knee radiographs September 03, 2016. FINDINGS: Alignment of the total right knee arthroplasty is anatomic. There is no periprosthetic fracture or unexpected radiopaque foreign body. Findings from previous ACL reconstruction are noted. IMPRESSION: Expected findings following total right knee arthroplasty. Electronically signed by: Sotero Lopez M.D. 03/11/2017 12:04 PM Dictated Date/Time: 03/11/2017 12:03 PM
[2017-03-11] MEDS: D5W AND 1/2NSS + 20MEQ KCL 1,000 ML IV SCH ×2 (13:19→22:12)
[2017-03-11] MEDS: KETOROLAC TROMETHAMINE 30 MG/ML VIAL IV. SCH ×2 (13:19→18:27)
[2017-03-11] MEDS: OXYCODONE HCL IR 5 MG TAB (IMMEDIATE RELEASE) PO PRN ×2 (13:20→19:41)
--- NOTE | 2017-03-11 15:01 | [facility] Operative Report ---
Operative Report Operative Date Mar 11, 2017. Pre-Operative Diagnosis Right Knee Osteoarthritis Post-Operative Diagnosis Same as preop Procedure(s) Performed Right Total Knee Arthroplasty Surgeon Dr. [facility] Manager Surgeon(s) Trevin Calderón Fellow Estimated Blood Loss 150 ML Findings Examined Under Anesthesia: ROM -- There was 5 degrees to 115 degrees of flexion. Ligamentous examination -- revealed Mp with 6 mm of anterior translation and soft endpoint, stable posterior drawer, varus and valgus stress at 0 and 30 degrees. [place] Type 4 changes of all 3 compartments and synovitis. Fluids (cc crystalloids) 2300 Specimens A. Right Knee Bone and Tissue Drains n/a Anesthesia Spinal + Femoral Nerve block Complication(s) None Disposition Recovery Room / PACU Implants 1. Femur: Triathlon #6 Right PS. 2. Tibia: Triathlon #6 [place] with 12 x 50 mm stem. 3. Insert: Triathlon #6 x 13mm PS X3 poly. 4. Patella: Triathlon A38 x 11mm X3 poly. Indications This is a 51-year-old male who has clinical and radiographic findings consistent with osteoarthritis of the a right knee. I recommended that a right total knee replacement be performed. The patient understands the risks of surgery, which include but not limited to: bleeding, infection, re-operation, damage to nerves and arteries, continued knee pain, knee stiffness, DVT, and . The patient understands all of these instructions and explanations, all of his questions have been satisfactorily addressed and the patient has elected to proceed. Informed consent was signed. Description of Procedure The patient was taken to the Operating Room and placed in the supine position after spinal and adductor canal nerve block was administered. My initials and a multidisciplinary time-out were used to identify the right leg as the correct operative limb. A tourniquet was placed high in the thigh. Prior to the incision, 3 grams of intravenous Ancef were given. The right leg was then prepped and draped in a standard sterile fashion. An Esmarch was used to exsanguinate the leg and the tourniquet was inflated to 250 mmHg. The planned mid-line 20 cm incision was created exposing the extensor mechanism. The medial parapatellar arthrotomy was made and the patella was everted. The patella was addressed first. It was prepared by reaming from 27 mm down to 15 mm. An A38 button was found to fit best. The peg holes were made in the standard fashion. The femur was addressed next and the guide brandon was placed intramedullary. The initial cutting block was placed with 5 degrees of valgus and removing 10 mm for the anterior cut. The cut was made and the 4-in-1 cutting block for a size 6 femur was placed. These cuts and the cuts to place the box were made in the standard fashion. Our attention was then drawn to the tibia cut with the external cutting guide, taking 2mm from the medial low side. There was sufficient extension and flexion gap to fit a 9 mm spacer. A #6 Tibial baseplate fit well. A trial with a 9 mm spacer showed excellent stability in both flexion and extension, with good ligament balance. Range of motion of 0-120 degrees. The tibial baseplate was pinned and the final preparation for the keel and stem was made. A stem was used due to some areas of soft bone, to avoid subsidence. All the trial components were tested again, with good stability and thumbs free tracking of the patella. All components were removed. The tourniquet was deflated. Hemostasis was obtained. 90 ml of total knee cocktail were injected into the soft tissues and periosteum. A bone plug was placed in the femur and covered with bone wax. After a 15 minute break, the limb was exsanguinated again and the tourniquet was re-inflated. All surfaces were copiously irrigated prior to placement of the components. The femoral component and Tibial baseplate were placed with the first batch of cement and a 9 mm trial placed. During the second batch of cement the patellar button was placed using Simplex cement. Again with the 9 mm trial poly was placed and the range of motion and stability were unchanged. Once the cement had cured, the 9 mm X3 poly was placed. The extensor mechanism was closed with 1-0 and 0 Vicryl with the knee bent approximately 60 degrees in a standard fashion. The peritenon and deep fascia was closed with 2-0 Vicryl. The subcutaneous layer was closed with 3-0 Vicryl. The skin was closed with enzo. The limb was cleaned and dried. Xeroform was placed over top followed by 4x4's, ABDs, sterile Webril, and a foot to thigh Antonio bandage. The patient was then transferred to the Recovery Room in stable condition. The sponge and needle counts were correct. POST-OP INSTRUCTIONS: The patient will be WBAT. The patient will be admitted to the hospital. The patient will use the knee immobilizer when ambulating and standing until good quad control is achieved. Labs will be obtained during her stay. DVT prophylaxis will included Lovenox for 3 weeks then switching to aspirin for 3 more weeks, TEDs, and mechanical foot pumps. I attest to the content of the Intraoperative Record and any orders documented therein. Any exceptions are noted below.
[2017-03-11] MEDS: CHECK SCOPOLAMINE PATCH PLACEMENT SCH (15:28)
[2017-03-11] MEDS: FERROUS GLUCONATE 324 MG TAB PO SCH (17:54)
--- NOTE | 2017-03-11 20:06 | Medical Consult ---
Consultation Date of Consultation: Mar 11, 2017. 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 Aaron. The patient had been wearing a R knee immobilizer x 1.5 years prior to surgery. He reports his pain is currently rated a 6/10 and well controlled as he took PO meds about 30 min ago. Pt notes he still has some tingling/numbness in the RLE. He tolerated diet for lunch and dinner. Pt has not yet gotten out of bed. He is not passing gas nor had a BM yet. Pt notes he is from home and lives alone. Plans on rehab at [facility] after discharge home. Pt denies any other acute complaints. Past Medical/Surgical History 1) HTN 2) Obesity 3) H/O OR x 3 4) Left hip aneurysm, followed by [facility] in [place] 5) Asthma 6) Sleep apnea - with CPAP 7) Osteoarthritis Past Surgical History: 1) Stent placement/heart catheterization x 5 2) Left knee arthroscopy x 3 3) Right knee arthroscopy x 3 4) Left shoulder, s/p labrum repair 5) Appendectomy 6) Tonsillectomy 7) Left Total Knee Arthroplasty 2017- Dr. Aaron Family History Heart disease Social History Smoking Status: Never Smoker Smokeless Tobacco Use: No Drug Use: none Housing Status: lives alone Occupation Status: employed Allergies Coded Allergies: NO KNOWN DRUG ALLERGIES (Verified Allergy, Unknown, NONE, 02/19/17) Unclassified Drugs (Verified Allergy, Unknown, NEOPRENE KNEE BRACE-RASH SKIN IRRITATION, 03/11/17) Current Inpatient Medications Current Inpatient Medications Medications (Trade) Dose Ordered Sig/Yimi Route Start Time Stop Time Status Last Admin Dose Admin Miscellaneous (Remove Transderm-Scop Patch) 1 ea Q72H N/A 03/14/17 06:00 03/14/17 06:01 Miscellaneous Information (Check Scopolamine Patch Placement) 1 ea QS N/A 03/11/17 16:00 03/14/17 05:59 03/11/17 15:28 1 EA Potassium Chloride/Dextrose/ Sod Cl 1,000 ml @ 100 mls/hr Q10H IV 03/11/17 13:00 03/12/17 11:24 03/11/17 13:19 100 MLS/HR Ketorolac Tromethamine (Toradol Inj) 30 mg Q6 IV. 03/11/17 13:30 03/12/17 11:59 03/11/17 18:27 30 MG Oxycodone HCl (Roxicodone Immediate Rel Tab) 1 TABLET FOR PAIN RATING... Q4H PRN PO 03/11/17 11:30 03/25/17 11:29 03/11/17 19:41 10 MG Magnesium Hydroxide (Milk Of Magnesia Susp) 30 ml Q6H PRN PO 03/11/17 11:30 04/10/17 11:29 Bisacodyl (Dulcolax Supp) 10 mg DAILY PRN VA 03/11/17 11:30 04/10/17 11:29 Docusate Sodium (coLACE CAP) 100 mg BID PO 03/11/17 21:00 04/10/17 20:59 Diphenhydramine HCl (Benadryl Cap) 25 mg Q8H PRN PO 03/11/17 11:30 04/10/17 11:29 Al Hydrox/Mg Hydrox/Simethicone (Maalox Max Susp) 15 ml Q4H PRN PO 03/11/17 11:30 04/10/17 11:29 Ondansetron HCl (Zofran Inj) 4 mg Q6H PRN IV 03/11/17 11:30 04/10/17 11:29 Metoclopramide HCl (Reglan Inj) 10 mg Q6H PRN IV 03/11/17 11:30 04/10/17 11:29 Ferrous Gluconate (Ferrous Gluconate Tab) 324 mg TIDM PO 03/11/17 17:45 04/10/17 17:44 03/11/17 17:54 324 MG Pantoprazole Sodium (Protonix Tab) 40 mg QAM PO 03/12/17 09:00 04/11/17 08:59 Tamsulosin HCl (Flomax Cap) 0.4 mg QAM PRN PO 03/11/17 11:30 04/10/17 11:29 Enoxaparin Sodium (Lovenox Inj) 30 mg Q12H SQ 03/12/17 08:00 04/01/17 11:24 Albuterol (Ventolin Hfa Inhaler) 2 puffs Q4H PRN INH 03/11/17 12:00 04/10/17 11:59 Aspirin (Ecotrin Tab) 81 mg QAM PO 03/12/17 09:00 04/11/17 08:59 Beclomethasone Dipropionate (Qvar 80 Mcg Hfa Inhaler) 3 puffs BID INH 03/11/17 21:00 04/10/17 20:59 Diltiazem HCl (TIAzac CAP) 360 mg QAM PO 03/12/17 09:00 04/11/17 08:59 Gabapentin (Neurontin Cap) 300 mg HS PRN PO 03/11/17 12:00 04/10/17 11:59 Isosorbide Mononitrate (Imdur Ext Rel Tab) 60 mg QAM PO 03/12/17 09:00 04/11/17 08:59 Lisinopril (Zestril Tab) 5 mg QAM PO 03/12/17 09:00 04/11/17 08:59 Metoprolol Tartrate (Lopressor Tab) 12.5 mg BID PO 03/11/17 21:00 04/10/17 20:59 Nitroglycerin (Nitrostat Tab) 0.4 mg PRN UT 03/11/17 12:00 04/10/17 11:59 Simvastatin (Zocor Tab) 20 mg HS PO 03/11/17 21:00 04/10/17 20:59 Morphine Sulfate (MoRPHine SULFATE INJ) 2 mg Q1HWA PRN IV 03/11/17 13:15 03/25/17 13:14 Morphine Sulfate (MoRPHine SULFATE INJ) 4 mg Q1HWA PRN IV 03/11/17 13:15 03/25/17 13:14 Review of Systems Constitutional: No fever, No chills, No sweats, No weight loss, No fatigue Eyes: No redness, No diplopia ENT: No sore throat, No trouble swallowing Respiratory: No cough, No wheezing, No shortness of breath Cardiovascular: No chest pain, No edema, No palpitations Abdomen: No pain, No nausea, No vomiting, No diarrhea, No constipation Musculoskeletal: No joint pain, No swelling Genitourinary - Male: No hematuria, No dysuria Neurologic: + numbness/tingling, No memory loss Psychiatric: No depression symptoms, No anxiety Endocrine: No fatigue Hematologic / Lymphatic: No abnormal bleeding/bruising, No clotting problems Integumentary: No rash, No itch Physical Exam Date Time Temp Pulse Resp B/P (MAP) Pulse Ox O2 Delivery O2 Flow Rate FiO2 03/11/17 15:30 36.3 69 16 118/69 (85) 95 Room Air 03/11/17 14:20 68 16 147/70 (95) 99 2.0 03/11/17 13:21 76 16 120/73 (89) 97 2.0 03/11/17 12:53 63 16 112/69 (83) 99 2.0 03/11/17 12:30 Nasal Cannula 03/11/17 12:20 36.5 66 18 148/67 (94) 98 Nasal Cannula 2.0 03/11/17 12:05 71 18 120/73 100 Nasal Cannula 3 03/11/17 11:50 36.2 67 16 135/69 96 Nasal Cannula 3 03/11/17 11:40 70 16 123/62 96 Nasal Cannula 3 03/11/17 11:30 66 16 120/68 97 Nasal Cannula 3 03/11/17 11:23 36.0 70 16 120/74 94 Nasal Cannula 3 03/11/17 05:30 36.6 52 20 128/81 95 Room Air General Appearance: WD/WN, no apparent distress, + obese (morbidly) Head: normocephalic, atraumatic Eyes: PERRL, EOMI ENT: hearing grossly normal, pharynx normal Neck: supple, no JVD Respiratory/Chest: lungs clear, no respiratory distress, no accessory muscle use Cardiovascular: regular rate, rhythm, no murmur, normal peripheral pulses Abdomen/GI: normal bowel sounds, non tender, soft, + pertinent finding (Pope catheter draining clear yellow urine) Back: normal inspection Extremities/Musculoskelatal: no calf tenderness, no pedal edema, + pertinent finding (RLE wrapped in DEVAUGHN, bandage is soaked through, new ABDs being applied by nursing. 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 Aaron. S/p R TKA - Pain management, bowel regimen, DVT with lovenox 30 mg Q12 per primary team - PT/OT - Plans for dc to [facility] after discharge - Pope catheter in place, continue flomax, void trial hopefully tomorrow per primary team - Follow am CBC Hx OR x 3: initial event in 2008, 2nd mild OR timeframe unknown, and last was in 2014. CAD s/p 5 stent placement HLD - Continue on home medications including baby aspirin, diltiazem 360 qam, imdur 60 mg Qam, metoprolol tartrate 12.5 mg BID, lisinopril 5 mg QAM, simvastatin 20 mg HS - Follows with Dr. Galvez as outpatient Left hip aneurysm - Follows with vascular surgery as outpatient in [place] and reports this has been stable Morbid Obesity - Diet and exercise encouraged - BMI = 52.6 ROSE - Continue CPAP QHS DVT ppx: lovenox as above, teds, scds Disposition: From home, PT/OT evals CODE STATUS: FULL CODE Thank you for involving us in the care of Mr. Jean Baptiste, please do not hesitate to call with questions or concerns. Reviewed: Pt Seen/Exam by Me History Physician Staple Shear Operator Supervision Note: I interviewed and examined the patient. Discussed with THIAGO Cui and agree with findings and plan as documented in the note. Any exceptions or clarifications are listed here: Post-op R TKA, doing well, no CP Vitals reviewed NAD, obese RRR no mgr Abd +BS soft, NT ND Ext Rt knee in DEVAUGHN wrap, no calf tenderness, left hand with 2+ nonpitting edema from previous blown PIV site 51 yo male with h/o CAD/MIs s/p 5 JIAN, here for Rt TKA-stable post-op -continue home meds -Lovenox DVT proph -follow PRP, CBC post-op day 1 Documented By: Belen Foreman
[2017-03-11] MEDS: SIMVASTATIN 20 MG TAB PO SCH (20:47)
[2017-03-11] MEDS: METOPROLOL TARTRATE 25 MG TAB PO SCH (20:47)
[2017-03-11] MEDS: DOCUSATE SODIUM 100 MG CAP PO SCH (20:48)
[2017-03-11] MEDS: BECLOMETHASONE DIP HFA 80 MCG 8.7G INH INH SCH (20:48)
--- NOTE | 2017-03-11 20:50 | Orthopedic Progress Note ---
Orthopedic Progress Note Date of Service Mar 11, 2017. Subjective Post OP Day: POD #0 Reports: complaints (Right knee pain 6/10) Objective calves soft nontender, dressing C/D/I, A&O x3, toes mobile Right lower extremity, remains numb. Date Time Temp Pulse Resp B/P (MAP) Pulse Ox O2 Delivery O2 Flow Rate FiO2 03/11/17 20:12 36.9 68 16 124/70 (88) 92 Room Air 03/11/17 15:30 36.3 69 16 118/69 (85) 95 Room Air 03/11/17 14:20 68 16 147/70 (95) 99 2.0 03/11/17 13:21 76 16 120/73 (89) 97 2.0 03/11/17 12:53 63 16 112/69 (83) 99 2.0 03/11/17 12:30 Nasal Cannula 03/11/17 12:20 36.5 66 18 148/67 (94) 98 Nasal Cannula 2.0 03/11/17 12:05 71 18 120/73 100 Nasal Cannula 3 03/11/17 11:50 36.2 67 16 135/69 96 Nasal Cannula 3 03/11/17 11:40 70 16 123/62 96 Nasal Cannula 3 03/11/17 11:30 66 16 120/68 97 Nasal Cannula 3 03/11/17 11:23 36.0 70 16 120/74 94 Nasal Cannula 3 03/11/17 05:30 36.6 52 20 128/81 95 Room Air Additional Notes: RADIOGRAPHS: Hardware in good position. Assessment & Plan Assessment: POD # 0, s/p R TKA. Plan: Continue with pain control. Regular diet. Check labs in the morning. ABELINO Pope in a.m. 03/12/2017. DVT prophylaxis: Teds and foot pumps, start Lovenox a.m. 03/12/2017. PT/OT. Discharge planning.
[2017-03-12] VITALS (8 sets, daily range): BP systolic 99–109; BP diastolic 58–73; PULSE 64–90; TEMP 36.8–37.6; O2SAT 93–96
[2017-03-12] MEDS: OXYCODONE HCL IR 5 MG TAB (IMMEDIATE RELEASE) PO PRN ×4 (00:04→18:06)
[2017-03-12] MEDS: KETOROLAC TROMETHAMINE 30 MG/ML VIAL IV. SCH ×2 (00:04→05:23)
[2017-03-12] MEDS: CHECK SCOPOLAMINE PATCH PLACEMENT SCH ×3 (00:05→16:26)
[2017-03-12 07:13] LABS: HEMATOCRIT 39.2 % (42-52); HEMOGLOBIN 12.9 g/dL (14.0-18.0); MEAN CELL VOLUME 81.7 fL (80-100); MEAN CORPUSCULAR HEMOGLOBIN 26.9 pg (25-34); MEAN CORPUSCULAR HGB CONC 32.9 g/dl (32-36); MEAN PLATELET VOLUME 10.4 fL (7.4-10.4); PLATELET COUNT 254 K/uL (130-400); RED CELL DISTRIBUTION WIDTH CV 14.5 % (11.5-14.5); RED CELL DISTRIBUTION WIDTH SD 43.3 fL (36.4-46.3)
--- NOTE | 2017-03-12 08:23 | Anesthesiology Progress Note ---
Anesthesia Post Op Note Date & Time Mar 12, 2017 at 08:23 Vital Signs Pain Intensity: 7.0 Vital Signs Past 12 Hours Date Time Temp Pulse Resp B/P (MAP) Pulse Ox O2 Delivery O2 Flow Rate FiO2 03/12/17 07:56 37.0 64 20 102/58 (73) 96 Room Air 03/12/17 03:34 37.4 86 16 106/73 (84) 95 Room Air 03/12/17 00:13 Room Air 03/12/17 00:10 36.8 76 16 109/71 (84) 94 Room Air 03/11/17 20:45 88 137/78 (97) Notes Mental Status: alert / awake / arousable, participated in evaluation Pt Amnestic to Procedure: Yes Nausea / Vomiting: adequately controlled Pain: improving with treatment Airway Patency, RR, SpO2: stable & adequate BP & HR: stable & adequate Hydration State: stable & adequate Neuraxial Anesthesia: sensory block resolved Anesthetic Complications: no major complications apparent
[2017-03-12] MEDS: ENOXAPARIN 30 MG/0.3 ML SYR SQ SCH ×2 (08:45→20:47)
[2017-03-12] MEDS: DOCUSATE SODIUM 100 MG CAP PO SCH ×2 (08:46→20:51)
[2017-03-12] MEDS: ASPIRIN 81 MG ECTAB PO SCH (08:48)
[2017-03-12] MEDS: ISOSORBIDE MONONITRATE 60 MG TABCR PO SCH (08:48)
[2017-03-12] MEDS: DILTIAZEM HCL (TIAzac) 180 MG CAPCR PO SCH (08:49)
[2017-03-12] MEDS: METOPROLOL TARTRATE 25 MG TAB PO SCH ×2 (08:49→20:51)
[2017-03-12] MEDS: FERROUS GLUCONATE 324 MG TAB PO SCH ×3 (08:50→18:04)
[2017-03-12] MEDS: PANTOprazole SOD 40 MG TAB PO SCH (08:50)
[2017-03-12] MEDS: BECLOMETHASONE DIP HFA 80 MCG 8.7G INH INH SCH ×2 (08:50→20:51)
[2017-03-12] MEDS: LISINOPRIL 5 MG TAB PO SCH (08:50)
[2017-03-12] MEDS: D5W AND 1/2NSS + 20MEQ KCL 1,000 ML IV SCH (09:00)
--- NOTE | 2017-03-12 09:02 | Orthopedic Progress Note ---
Orthopedic Progress Note Date of Service Mar 12, 2017. Subjective Post OP Day: 1 Reports: feeling well, pain controlled w PO medications, Denies: complaints, chest pain, SOB, nausea / vomiting, light headedness, calf pain Additional Notes: Tolerating a regular diet. States that he has been out of bed ambulating in the halls a couple times last evening. Objective calves soft nontender, N/V intact, capillary refill less than 2 sec., incision C /D/I, A&O x3, toes mobile Dressings saturated with bloody drainage, reinforced multiple times. Dressings were removed. His incision is clean dry and intact. The zipper closure is intact. No active bleeding. Sterile dressings were applied to his right lower extremity. Distal pulses 1+. Distal sensation normal. He is unable to and apparently straight leg raise this morning. Date Time Temp Pulse Resp B/P (MAP) Pulse Ox O2 Delivery O2 Flow Rate FiO2 03/12/17 07:56 37.0 64 20 102/58 (73) 96 Room Air 03/12/17 03:34 37.4 86 16 106/73 (84) 95 Room Air 03/12/17 00:13 Room Air 03/12/17 00:10 36.8 76 16 109/71 (84) 94 Room Air 03/11/17 20:45 88 137/78 (97) 03/11/17 20:12 36.9 68 16 124/70 (88) 92 Room Air 03/11/17 15:30 36.3 69 16 118/69 (85) 95 Room Air 03/11/17 14:20 68 16 147/70 (95) 99 2.0 03/11/17 13:21 76 16 120/73 (89) 97 2.0 03/11/17 12:53 63 16 112/69 (83) 99 2.0 03/11/17 12:30 Nasal Cannula 03/11/17 12:25 Nasal Cannula 03/11/17 12:20 36.5 66 18 148/67 (94) 98 Nasal Cannula 2.0 03/11/17 12:05 71 18 120/73 100 Nasal Cannula 3 03/11/17 11:50 36.2 67 16 135/69 96 Nasal Cannula 3 03/11/17 11:40 70 16 123/62 96 Nasal Cannula 3 03/11/17 11:30 66 16 120/68 97 Nasal Cannula 3 03/11/17 11:23 36.0 70 16 120/74 94 Nasal Cannula 3 Laboratory Results 24 Hours: Test 03/12/17 06:52 03/12/17 08:09 Hematocrit 39.2 % Hemoglobin 12.9 g/dL Assessment & Plan Assessment: POD 1, s/p R TKA. Acute blood loss anemia. Plan: Continue with pain control. Continue to reinforce dressings as needed right lower extremity. Encouraged bedside exercises. Ice to right knee as needed. Regular diet. H&H stable. No transfusions necessary. We'll continue to monitor. Toshia machado DVT prophylaxis: Teds and foot pumps, start Lovenox today. PT/OT. Discharge planning as per case management. Patient feels that he is able to go home. He does live alone but has family member that lives a few houses wave that is a nurse that's willing to help him. He has scheduled outpatient physical therapy for Friday. We'll discuss findings with Dr. Aaron. Please call [phone] with any questions. Discharge Planning Discharge Planning: home Pain Management: Percocet DVT Prophylaxis: TEDs, Lovenox (30 mg twice a day 21 days) Therapy: Physical Therapy
[2017-03-12] MEDS: MoRPHine SULFATE 4 MG/ML 1 ML CARP\\VIAL IV PRN (10:49)
--- NOTE | 2017-03-12 13:03 | Hospitalist Progress Note ---
Hospitalist Progress Note Date of Service Mar 12, 2017. (Mayra Canas ., ZEINAC) Subjective Pt evaluation today including: conversation w/ patient, physical exam, lab review, review of inpatient medication list Voiding: no voiding problems Patient resting in bed. Eating and drinking OK. Pain is well controlled. +flatus postop, no BM. Patient denies any fever, chills, sweats, lightheadedness, dizziness, vision changes, CP, palpitations, edema, SOB, wheezing, cough, abdominal pain, nausea, vomiting, diarrhea, urinary symptoms, melena, numbness/tingling, weakness, muscle/joint pain, anxiety/depression, active bleeding, or new skin discoloration/changes. (Mayra Canas ., THIAGO-C) Medications Current Inpatient Medications Medications (Trade) Dose Ordered Sig/Yimi Route Start Time Stop Time Status Last Admin Dose Admin Miscellaneous (Remove Transderm-Scop Patch) 1 ea Q72H N/A 03/14/17 06:00 03/14/17 06:01 Miscellaneous Information (Check Scopolamine Patch Placement) 1 ea QS N/A 03/11/17 16:00 03/14/17 05:59 03/12/17 07:59 1 EA Oxycodone HCl (Roxicodone Immediate Rel Tab) 1 TABLET FOR PAIN RATING... Q4H PRN PO 03/11/17 11:30 03/25/17 11:29 03/12/17 12:48 10 MG Magnesium Hydroxide (Milk Of Magnesia Susp) 30 ml Q6H PRN PO 03/11/17 11:30 04/10/17 11:29 Bisacodyl (Dulcolax Supp) 10 mg DAILY PRN GA 03/11/17 11:30 04/10/17 11:29 Docusate Sodium (coLACE CAP) 100 mg BID PO 03/11/17 21:00 04/10/17 20:59 03/12/17 08:46 100 MG Diphenhydramine HCl (Benadryl Cap) 25 mg Q8H PRN PO 03/11/17 11:30 04/10/17 11:29 Al Hydrox/Mg Hydrox/Simethicone (Maalox Max Susp) 15 ml Q4H PRN PO 03/11/17 11:30 04/10/17 11:29 Ondansetron HCl (Zofran Inj) 4 mg Q6H PRN IV 03/11/17 11:30 04/10/17 11:29 Metoclopramide HCl (Reglan Inj) 10 mg Q6H PRN IV 03/11/17 11:30 04/10/17 11:29 Ferrous Gluconate (Ferrous Gluconate Tab) 324 mg TIDM PO 03/11/17 17:45 04/10/17 17:44 03/12/17 12:44 324 MG Pantoprazole Sodium (Protonix Tab) 40 mg QAM PO 03/12/17 09:00 04/11/17 08:59 03/12/17 08:50 40 MG Tamsulosin HCl (Flomax Cap) 0.4 mg QAM PRN PO 03/11/17 11:30 04/10/17 11:29 Enoxaparin Sodium (Lovenox Inj) 30 mg Q12H SQ 03/12/17 08:00 04/01/17 11:24 03/12/17 08:45 30 MG Albuterol (Ventolin Hfa Inhaler) 2 puffs Q4H PRN INH 03/11/17 12:00 04/10/17 11:59 Aspirin (Ecotrin Tab) 81 mg QAM PO 03/12/17 09:00 04/11/17 08:59 03/12/17 08:48 81 MG Beclomethasone Dipropionate (Qvar 80 Mcg Hfa Inhaler) 3 puffs BID INH 03/11/17 21:00 04/10/17 20:59 03/12/17 08:50 3 PUFFS Diltiazem HCl (TIAzac CAP) 360 mg QAM PO 03/12/17 09:00 04/11/17 08:59 03/12/17 08:49 360 MG Gabapentin (Neurontin Cap) 300 mg HS PRN PO 03/11/17 12:00 04/10/17 11:59 Isosorbide Mononitrate (Imdur Ext Rel Tab) 60 mg QAM PO 03/12/17 09:00 04/11/17 08:59 03/12/17 08:48 60 MG Lisinopril (Zestril Tab) 5 mg QAM PO 03/12/17 09:00 04/11/17 08:59 03/12/17 08:50 5 MG Metoprolol Tartrate (Lopressor Tab) 12.5 mg BID PO 03/11/17 21:00 04/10/17 20:59 03/12/17 08:49 12.5 MG Nitroglycerin (Nitrostat Tab) 0.4 mg PRN UT 03/11/17 12:00 04/10/17 11:59 Simvastatin (Zocor Tab) 20 mg HS PO 03/11/17 21:00 04/10/17 20:59 03/11/17 20:47 20 MG Morphine Sulfate (MoRPHine SULFATE INJ) 2 mg Q1HWA PRN IV 03/11/17 13:15 03/25/17 13:14 03/11/17 22:11 2 MG Morphine Sulfate (MoRPHine SULFATE INJ) 4 mg Q1HWA PRN IV 03/11/17 13:15 03/25/17 13:14 03/12/17 10:49 4 MG (Mayra Canas ., PA-C) Objective Vital Signs Date Time Temp Pulse Resp B/P (MAP) Pulse Ox O2 Delivery O2 Flow Rate FiO2 03/12/17 11:57 37.1 90 16 109/71 (84) 94 Room Air 03/12/17 09:11 96 Room Air 03/12/17 08:00 Room Air 03/12/17 07:56 37.0 64 20 102/58 (73) 96 Room Air 03/12/17 03:34 37.4 86 16 106/73 (84) 95 Room Air 03/12/17 00:13 Room Air 03/12/17 00:10 36.8 76 16 109/71 (84) 94 Room Air 03/11/17 20:45 88 137/78 (97) 03/11/17 20:12 36.9 68 16 124/70 (88) 92 Room Air 03/11/17 15:30 36.3 69 16 118/69 (85) 95 Room Air 03/11/17 14:20 68 16 147/70 (95) 99 2.0 03/11/17 13:21 76 16 120/73 (89) 97 2.0 (Mayra Canas, PA-C) Physical Exam General Appearance: no apparent distress, + obese Eyes: normal inspection, PERRL ENT: hearing grossly normal Neck: supple Respiratory/Chest: lungs clear, no respiratory distress, no accessory muscle use Cardiovascular: regular rate, rhythm Abdomen: normal bowel sounds, non tender, soft Extremities: no pedal edema, no calf tenderness, + pertinent finding (RLE in DEVAUGHN wrap ) Neurologic/Psychiatric: alert, normal mood/affect, oriented x 3 Skin: normal color, warm/dry, no rash (Mayra Canas, ZEINAC) Laboratory Results Last 24 Hours Test 03/12/17 06:52 03/12/17 08:09 White Blood Count 13.30 K/uL Red Blood Count 4.80 M/uL Hemoglobin 12.9 g/dL Hematocrit 39.2 % Mean Corpuscular Volume 81.7 fL Mean Corpuscular Hemoglobin 26.9 pg Mean Corpuscular Hemoglobin Concent 32.9 g/dl RDW Standard Deviation 43.3 fL RDW Coefficient of Variation 14.5 % Platelet Count 254 K/uL Mean Platelet Volume 10.4 fL (Mayra Canas ., ZEINAC) Assessment and Plan 51 y/o M PMHx of HTN, [place] x 3, CAD s/p heart cath x 5 stents, morbid obesity, 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 Aaron. s/p R TKA by Dr. Aaron on 03/11: - Surgical management, pain management, PT/OT, and DVT prophylaxis - Bowel regimen ordered - Encourage incentive spirometer - Follow CBC and PRP CAD w/ [place] s/p cardiac stenting x5, HLD- follows w/ Dr. Romo: - Continue ASA, Diltiazem 360 qam, Imdur 60 mg Qam, Metoprolol 12.5 mg BID, Lisinopril 5 mg QAM, Simvastatin 20 mg HS Left hip aneurysm- follows w/ vascular surgery as outpatient in [place] Morbid obesity w/ BMI of 52.6: Encourage diet and exercise ROSE: Continue CPAP QHS GI prophylaxis: Protonix daily DVT prophylaxis: Loveonx SQ as per surgical team Code Status: LEVEL I, FULL Dispo: Discharge as per primary team (Mayra Canas, CHHAYA) Supervising Note Dr. Berman I performed a history and physical examination on the patient. I reviewed above note and agree with it. I discussed plan with APC and patient. During my face to face encounter with the patient, I answered all of the patient's questions. (Devin Berman M.D.)
--- NOTE | 2017-03-12 16:54 | Discharge Instructions ---
Discharge Instructions Date of Service Mar 12, 2017. Admission Reason for Admission: Right Knee Osteoarthritis Discharge Discharge Diagnosis / Problem: Right knee osteoarthritis Discharge Goals Goal(s): Decrease discomfort, Improve function, Increase independence Activity Recommendations Activity Limitations: per Instructions/Follow-up section Weightbearing Status: Left weightbearing (as tolerated), Right weightbearing ( as tolerated) . Instructions / Follow-Up Instructions / Follow-Up New Medicine: * You will likely be taking one or more of these medications: 1. Lovenox - You will be on Lovenox for 3 weeks after surgery to prevent blood clots. Aspirin, 81 mg is OK to take while on Lovenox. 2. Percocet - Take, as directed, when you need it, every four to six hours to control your pain. 3. Colace & Senokot - Take to prevent constipation which can be caused by narcotics. These can be bought [id number] at the pharmacy 4. Iron 325 mg and Vitamin C 250 mg - orally taken together twice a day with meals for 2weeks. * The most common side effects of pain medicine and iron are nausea and constipation. If nausea or constipation is too much of a problem or if you have any questions about your new medicines or doses, call [facility] at . We will try to help you manage these issues. VERY IMPORTANT TO READ AND REVIEW" Blood Clots and Blood Thinning Medicine: * You are given Lovenox during the immediate post-operative period to lessen the risk of blood clots forming in your legs and/or lungs. Lovenox is usually given for three weeks after surgery. Physical Therapy: * Do your physical therapy at home. These are the exercises you learned while in the hospital (quad sets, leg raises, calf pumps, gluteal squeezes, knee bending, and heel props.) You should do these exercises 3-4 times per day. * You will either go to inpatient rehab ([facility]), home with Home Therapy and nursing or home with outpatient rehab. You should do rehab with the therapist 2-3 times per week. You should do therapy on your own daily. * You may bear full weight on your leg with crutches or walker unless otherwise advised. Home Exercise: * You were shown a series of exercises (heel props, heel slides, etc.) in the hospital. Do these exercises three to four times each day including the exercises you were shown in physical therapy. Walking: * You may be up for short periods of time. Standing and walking for 1-2 hours at a time is usually okay. You should not stand or walk for excessive periods of time as this may cause increased pain and swelling. SELF CARE INSTRUCTIONS AFTER TOTAL KNEE REPLACEMENT A. You may need to continue a physical therapy program after discharge from the hospital. There are several options available to you. Your doctor will assist you in selecting the best one for you. 1. An out-patient facility 2 to 3 times a week for therapy or home therapy. 2. Continue working on all exercises taught to you in the hospital. Your goals should be to increase bending of your knee to 90 degrees and beyond and to fully straighten your knee. B. Your therapist will notify you when you are able to progress from a walker to a cane. C. Wear TEDS as much as possible.~ They may be removed at night for laundering. D. Do not place a pillow behind your knee when resting. A pillow at your ankle is okay. E. Ice your knee 15-20 minutes every 2-3 hours and elevate it above the level of your heart. F. You may shower on the fourth day after surgery using regular soap and water. Do not submerge until the wound is completely healed (approximately 2 weeks ). Until the fourth day after surgery, cover the incision/bandage with a bag or plastic wrap. G. Anyone who is touching your surgical incision area should wash their hands and wear gloves. H. Keep your incision covered with gauze pads under the MARY hose until it is dry. I. Leave dressings/zipper in place until your follow up appointment with Dr. Aaron. VERY IMPORTANT TO READ AND REVIEW A. YOU WILL BE GIVEN AN ORDER AT DISCHARGE FOR PT/INR (BLOOD WORK). PLEASE HAVE THIS DONE INSTRUCTED. PLEASE CALL OUR OFFICE AFTER YOUR BLOODWORK IS COMPLETE SO WE CAN TRACK YOUR RESULTS. IF YOU ARE GOING TO OUTPATIENT PHYSICAL THERAPY, YOU WILL NEED TO GO TO OUTPATIENT TESTING TO HAVE IT DRAWN. B. There are a few signs you need to watch for after you are home. Call [facility] if you notice any of the followin. Increased severe knee pain. Some pain is expected especially when you exercise. 2. Increased swelling in your leg or knee; pain or swelling of the calf muscle in either lower leg. 3. Any fluid drainage from the incision. 4. Shortness of breath or chest pain. 5. Numbness and tingling in the surgical extremity C. Please call [facility] at if you have any concerns or questions about your operation or recovery. The doctor or his nurse will return your call promptly. D. Do not have any elective dental work or other elective procedures done for 6 weeks after your knee replacement. When you have any invasive procedure (dental cleaning, extraction, colonoscopy etc) performed, you will need to take antibiotics to prevent infection from developing in your artificial joint. Tell your other health care providers you have an artificial joint. My office will supply you with further information and the antibiotics. Call your doctor if: * Temperature above 101 degrees F. * Pain not relieved by pain medicine ordered. * Increased drainage or redness from incision. * Notify your doctor with any questions or concerns. Follow-up Visit: You will follow-up with Dr. Aaron 10-14 days after surgery. You have an appointment scheduled on 03/25/17 at 10:45 a.m. The office number is . Avoid all tobacco products. If you need help to stop smoking, call [place]'s FREE QUITLINE at . This is a free call. Current Hospital Diet Patient's current hospital diet: Regular Diet Discharge Diet Recommended Diet: Regular Diet Procedures Procedures Performed: Right Total Knee Arthroplasty Pending Studies Studies pending at discharge: no Medical Emergencies . Who to Call and When: Medical Emergencies: If at any time you feel your situation is an emergency, please call 911 immediately. . Non-Emergent Contact Non-Emergency issues call your: Surgeon Call Non-Emergent contact if: temperature is above 101, your pain is not controlled, your pain is worsening, your pain is unusual for you, your pain is concerning you, wound has increased drainage, wound has increased redness, wound has increased pain, you have any medication questions . "Provider Documentation" section prepared by Shakira Amos. . VTE Core Measure Inpt VTE Proph given/why not?: Enoxaparin (Lovenox)SQ (30 mg sq twice daily x 21 days)
[2017-03-12] MEDS: SIMVASTATIN 20 MG TAB PO SCH (20:51)
[2017-03-13] MEDS: CHECK SCOPOLAMINE PATCH PLACEMENT SCH ×2 (00:28→07:38)
[2017-03-13] MEDS: OXYCODONE HCL IR 5 MG TAB (IMMEDIATE RELEASE) PO PRN ×4 (00:29→15:26)
[2017-03-13] MEDS: MoRPHine SULFATE 4 MG/ML 1 ML CARP\\VIAL IV PRN (01:23)
[2017-03-13 06:48] LABS: HEMOGLOBIN 11.7 g/dL (14.0-18.0); MEAN CELL VOLUME 81.8 fL (80-100); MEAN CORPUSCULAR HEMOGLOBIN 27.3 pg (25-34); MEAN CORPUSCULAR HGB CONC 33.4 g/dl (32-36); PLATELET COUNT 227 K/uL (130-400); RED CELL DISTRIBUTION WIDTH CV 14.5 % (11.5-14.5); RED CELL DISTRIBUTION WIDTH SD 43.1 fL (36.4-46.3); WHITE BLOOD COUNT 11.64 K/uL (4.8-10.8)
[2017-03-13 07:25] LABS: CALCIUM 8.1 mg/dl (8.5-10.1); CREATININE 0.85 mg/dl (0.60-1.40)
[2017-03-13 07:35] VITALS: BP 108/72; PULSE 72; TEMP 36.7; O2SAT 95
[2017-03-13] MEDS: ENOXAPARIN 30 MG/0.3 ML SYR SQ SCH (07:39)
[2017-03-13] MEDS: BECLOMETHASONE DIP HFA 80 MCG 8.7G INH INH SCH (08:12)
[2017-03-13] MEDS: DOCUSATE SODIUM 100 MG CAP PO SCH (09:18)
[2017-03-13] MEDS: ISOSORBIDE MONONITRATE 60 MG TABCR PO SCH (09:18)
[2017-03-13] MEDS: FERROUS GLUCONATE 324 MG TAB PO SCH ×2 (09:18→13:31)
[2017-03-13] MEDS: LISINOPRIL 5 MG TAB PO SCH (09:19)
[2017-03-13] MEDS: PANTOprazole SOD 40 MG TAB PO SCH (09:19)
[2017-03-13] MEDS: DILTIAZEM HCL (TIAzac) 180 MG CAPCR PO SCH (09:19)
[2017-03-13] MEDS: ASPIRIN 81 MG ECTAB PO SCH (09:20)
[2017-03-13] MEDS: METOPROLOL TARTRATE 25 MG TAB PO SCH (10:17)
--- NOTE | 2017-03-13 11:33 | Hospitalist Progress Note ---
Hospitalist Progress Note Date of Service Mar 13, 2017. (Mayra Canas ., PA-C) Subjective Pt evaluation today including: conversation w/ patient, physical exam, lab review, review of inpatient medication list Voiding: no voiding problems Patient resting in bed. Eating and drinking OK. Pain is well controlled. +flatus, no BM yet- encouraged ambulating, healthy diet, and MiraLAX daily or PRN/stool softener PRN until BM. Patient denies any fever, chills, sweats, lightheadedness, dizziness, vision changes, CP, palpitations, edema, SOB, wheezing, cough, abdominal pain, nausea, vomiting, diarrhea, urinary symptoms, melena, numbness/tingling, weakness, anxiety/depression, active bleeding, or new skin discoloration/changes. (Mayra Canas ., PA-C) Medications Current Inpatient Medications Medications (Trade) Dose Ordered Sig/Yimi Route Start Time Stop Time Status Last Admin Dose Admin Miscellaneous (Remove Transderm-Scop Patch) 1 ea Q72H N/A 03/14/17 06:00 03/14/17 06:01 Miscellaneous Information (Check Scopolamine Patch Placement) 1 ea QS N/A 03/11/17 16:00 03/14/17 05:59 03/13/17 07:38 1 EA Oxycodone HCl (Roxicodone Immediate Rel Tab) 1 TABLET FOR PAIN RATING... Q4H PRN PO 03/11/17 11:30 03/25/17 11:29 03/13/17 11:14 10 MG Magnesium Hydroxide (Milk Of Magnesia Susp) 30 ml Q6H PRN PO 03/11/17 11:30 04/10/17 11:29 Bisacodyl (Dulcolax Supp) 10 mg DAILY PRN [place] 03/11/17 11:30 04/10/17 11:29 Docusate Sodium (coLACE CAP) 100 mg BID PO 03/11/17 21:00 04/10/17 20:59 03/13/17 09:18 100 MG Diphenhydramine HCl (Benadryl Cap) 25 mg Q8H PRN PO 03/11/17 11:30 04/10/17 11:29 Al Hydrox/Mg Hydrox/Simethicone (Maalox Max Susp) 15 ml Q4H PRN PO 03/11/17 11:30 04/10/17 11:29 Ondansetron HCl (Zofran Inj) 4 mg Q6H PRN IV 03/11/17 11:30 04/10/17 11:29 Metoclopramide HCl (Reglan Inj) 10 mg Q6H PRN IV 03/11/17 11:30 04/10/17 11:29 Ferrous Gluconate (Ferrous Gluconate Tab) 324 mg TIDM PO 03/11/17 17:45 04/10/17 17:44 03/13/17 09:18 324 MG Pantoprazole Sodium (Protonix Tab) 40 mg QAM PO 03/12/17 09:00 04/11/17 08:59 03/13/17 09:19 40 MG Tamsulosin HCl (Flomax Cap) 0.4 mg QAM PRN PO 03/11/17 11:30 04/10/17 11:29 Enoxaparin Sodium (Lovenox Inj) 30 mg Q12H SQ 03/12/17 08:00 04/01/17 11:24 03/13/17 07:39 30 MG Albuterol (Ventolin Hfa Inhaler) 2 puffs Q4H PRN INH 03/11/17 12:00 04/10/17 11:59 Aspirin (Ecotrin Tab) 81 mg QAM PO 03/12/17 09:00 04/11/17 08:59 03/13/17 09:20 81 MG Beclomethasone Dipropionate (Qvar 80 Mcg Hfa Inhaler) 3 puffs BID INH 03/11/17 21:00 04/10/17 20:59 03/13/17 08:12 3 PUFFS Diltiazem HCl (TIAzac CAP) 360 mg QAM PO 03/12/17 09:00 04/11/17 08:59 03/13/17 09:19 360 MG Gabapentin (Neurontin Cap) 300 mg HS PRN PO 03/11/17 12:00 04/10/17 11:59 03/12/17 23:01 300 MG Isosorbide Mononitrate (Imdur Ext Rel Tab) 60 mg QAM PO 03/12/17 09:00 04/11/17 08:59 03/13/17 09:18 60 MG Lisinopril (Zestril Tab) 5 mg QAM PO 03/12/17 09:00 04/11/17 08:59 03/13/17 09:19 5 MG Metoprolol Tartrate (Lopressor Tab) 12.5 mg BID PO 03/11/17 21:00 04/10/17 20:59 03/13/17 10:17 12.5 MG Nitroglycerin (Nitrostat Tab) 0.4 mg PRN UT 03/11/17 12:00 04/10/17 11:59 Simvastatin (Zocor Tab) 20 mg HS PO 03/11/17 21:00 04/10/17 20:59 03/12/17 20:51 20 MG Morphine Sulfate (MoRPHine SULFATE INJ) 2 mg Q1HWA PRN IV 03/11/17 13:15 03/25/17 13:14 03/11/17 22:11 2 MG Morphine Sulfate (MoRPHine SULFATE INJ) 4 mg Q1HWA PRN IV 03/11/17 13:15 03/25/17 13:14 03/13/17 01:23 4 MG (Mayra Canas, PA-C) Objective Vital Signs Date Time Temp Pulse Resp B/P (MAP) Pulse Ox O2 Delivery O2 Flow Rate FiO2 03/13/17 07:35 36.7 72 17 108/72 (84) 95 Room Air 03/13/17 00:31 Room Air CPAP 03/12/17 23:54 37.6 84 18 100/64 (76) 93 Room Air 03/12/17 20:45 88 106/68 (81) 03/12/17 16:21 36.9 72 21 99/60 (73) 94 Room Air 03/12/17 14:02 Room Air 03/12/17 11:57 37.1 90 16 109/71 (84) 94 Room Air 03/12/17 09:11 96 Room Air (Mayra Canas, PA-C) Physical Exam General Appearance: no apparent distress, + obese Eyes: normal inspection, PERRL ENT: hearing grossly normal Neck: supple Respiratory/Chest: lungs clear, no respiratory distress, no accessory muscle use Cardiovascular: regular rate, rhythm Abdomen: normal bowel sounds, non tender, soft Extremities: no pedal edema, no calf tenderness Neurologic/Psychiatric: alert, normal mood/affect, oriented x 3 Skin: normal color, warm/dry, no rash (Mayra Canas ., PA-C) Laboratory Results Last 24 Hours Test 03/13/17 06:28 White Blood Count 11.64 K/uL Red Blood Count 4.28 M/uL Hemoglobin 11.7 g/dL Hematocrit 35.0 % Mean Corpuscular Volume 81.8 fL Mean Corpuscular Hemoglobin 27.3 pg Mean Corpuscular Hemoglobin Concent 33.4 g/dl RDW Standard Deviation 43.1 fL RDW Coefficient of Variation 14.5 % Platelet Count 227 K/uL Mean Platelet Volume 10.0 fL Sodium Level 136 mmol/L Potassium Level 4.0 mmol/L Chloride Level 104 mmol/L Carbon Dioxide Level 25 mmol/L Anion Gap 7.0 mmol/L Blood Urea Nitrogen 15 mg/dl Creatinine 0.85 mg/dl Est Creatinine Clear Calc Drug Dose 168.8 ml/min Estimated GFR () 118.6 Estimated GFR (Non- 102.3 BUN/Creatinine Ratio 17.2 Random Glucose 104 mg/dl Calcium Level 8.1 mg/dl (Mayra Canas ., PA-C) Assessment and Plan 51 y/o M PMHx of HTN, [place] x 3, CAD s/p heart cath x 5 stents, morbid obesity, 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 Aaron. s/p R TKA by Dr. Aaron on 03/11: - Surgical management, pain management, PT/OT, and DVT prophylaxis - Bowel regimen ordered - Encourage incentive spirometer - Follow CBC and PRP- STABLE CAD w/ [place] s/p cardiac stenting x5, HLD- follows w/ Dr. Romo: - Continue ASA, Diltiazem 360 qam, Imdur 60 mg Qam, Metoprolol 12.5 mg BID, Lisinopril 5 mg QAM, Simvastatin 20 mg HS Left hip aneurysm- follows w/ vascular surgery as outpatient in [place] Morbid obesity w/ BMI of 52.6: Encourage diet and exercise ROSE: Continue CPAP QHS GI prophylaxis: Protonix daily DVT prophylaxis: Lovenox SQ as per surgical team Code Status: LEVEL I, FULL Dispo: Discharge as per primary team - Patient is medically stable for discharge, medical team will sign-off. Please feel free to contact w/ any new questions/concerns. (Mayra Canas ., CHHAYA) Supervising Note Dr. Berman I performed a history and physical examination on the patient. I reviewed above note and agree with it. I discussed plan with APC and patient. During my face to face encounter with the patient, I answered all of the patient's questions. (Devin Berman M.D.)
[2017-03-13] MEDS ORDERED: OXYC-57 PO (12:24)
[2017-03-13] MEDS ORDERED: ENOX30IN SQ (13:44)
[2017-03-13 14:32] VITALS: BP 108/72; PULSE 72; TEMP 36.7; O2SAT 95
--- NOTE | 2017-03-14 10:37 | Discharge Summary ---
Discharge Summary Date of Service Mar 14, 2017. Discharge Summary Admission Date: Mar 11, 2017 at 11:41 Discharge Date: Mar 13, 2017 Discharge Disposition: Home Principal Diagnosis: DJD right knee Secondary Diagnoses/Problems: 1) HTN 2) Obesity 3) H/O LA x 3 4) Left hip aneurysm, followed by [facility] in [place] 5) Asthma 6) Sleep apnea - with CPAP 7) Osteoarthritis Procedures: Right total knee arthroplasty March 11, [address] Aaron Consultations: Hospitalist Service for post op medical management Pending Studies/Follow-Up: You have a follow-up appointment scheduled with Dr. Aaron on March 25, 2017 at 10:45 AM Medication Reconciliation New Medications: Enoxaparin (Lovenox) 30 Mg/0.3 Ml Inj 30 MG SQ Q12, #42 SYR Oxycodone/Acetaminophen 5MG/325MG (Percocet 5MG/325MG) Tab 1-2 TABLETS PO Q4H PRN for Pain, #30 TAB Continued Medications: Albuterol (Ventolin Hfa) 60 Puffs/5400 Mcg Aers 2 PUFFS INH Q4H PRN for SOB/Wheezing Aspirin (Aspirin Ec) 81 Mg Tab 81 MG PO QAM Beclomethasone Dip (Qvar) 80 Mcg/Act Aer 3 PUFFS INH BID Diltiazem Hcl Ext Rel (Tiazac) 360 Mg Capcr 360 MG PO QAM, CAP Gabapentin (Neurontin) 300 Mg Cap 300 MG PO HS PRN for Pain, CAP Isosorbide Mononitrate Ext Rel (Imdur Ext Rel) 60 Mg Ertab 60 MG PO QAM, TAB Lisinopril (Lisinopril) 5 Mg Tab 5 MG PO QAM Metoprolol Tartrate (Lopressor) (Lopressor) 25 Mg Tab 12.5 MG PO BID, TAB Nitroglycerin (Nitrostat) 0.4 Mg Tab 0.4 MG UT PRN, BTL Pantoprazole (Protonix) 40 Mg Tab 40 MG PO QAM, #30 TAB Simvastatin (Zocor) 20 Mg Tab 20 MG PO HS, TAB Discontinued Medications: Ibuprofen (Advil) 200 Mg Tab 400 MG PO QID PRN for RN, TAB Hospital Course Patient was admitted to the [facility] on March 11, 2017 after undergoing an elective right total knee arthroplasty by Dr. Aaron. He was given 3 g of IV Ancef for surgical prophylaxis. His surgery was done with spinal anesthesia in peripheral nerve block. He tolerated the procedure well without any intraoperative complications. His Ancef was continued 24 hours after surgery. He was placed on Lovenox 30 mg twice a day for DVT prophylaxis which started the following day after surgery. His was also placed on MARY stockings and Foot pumps as well. He was a lot out of bed, weightbearing as tolerated right lower extremity with the assistance of walker and knee immobilizer. Oral and IV pain medication was prescribed. His pain was well controlled during his hospital stay. His vitals were stable during his stay. His CBC and PRP were stable during his stay. He did not require any blood transfusions during this admission. He did have some bloody drainage from his right knee is saturated his dressings. The nurses reinforce dressings multiple times. On postoperative day one his Surgical dressings were changed. His incision was clean and dry and intact. Dressings were applied. The drainage subsided. Postoperative day 2 dressings were removed. He tolerated regular diet. During his inpatient stay was seen and evaluated by physical therapy and occupational therapy. He was safe out of bed the assistance of his walker. Hospitalist service was consulted for postoperative medical management. He was deemed safe for discharge and was discharged to his home on March 13, 2017. Discharge instructions were provided. Total time spent on discharge = This includes examination of the patient, discharge planning, medication reconciliation, and communication with other providers. Discharge Instructions Discharge Instructions Date of Service Mar 12, 2017. Admission Reason for Admission: Right Knee Osteoarthritis Discharge Discharge Diagnosis / Problem: Right knee osteoarthritis Discharge Goals Goal(s): Decrease discomfort, Improve function, Increase independence Activity Recommendations Activity Limitations: per Instructions/Follow-up section Weightbearing Status: Left weightbearing (as tolerated), Right weightbearing ( as tolerated) . Instructions / Follow-Up Instructions / Follow-Up New Medicine: * You will likely be taking one or more of these medications: 1. Lovenox - You will be on Lovenox for 3 weeks after surgery to prevent blood clots. Aspirin, 81 mg is OK to take while on Lovenox. 2. Percocet - Take, as directed, when you need it, every four to six hours to control your pain. 3. Colace & Senokot - Take to prevent constipation which can be caused by narcotics. These can be bought [id number] at the pharmacy 4. Iron 325 mg and Vitamin C 250 mg - orally taken together twice a day with meals for 2weeks. * The most common side effects of pain medicine and iron are nausea and constipation. If nausea or constipation is too much of a problem or if you have any questions about your new medicines or doses, call [facility] at . We will try to help you manage these issues. VERY IMPORTANT TO READ AND REVIEW" Blood Clots and Blood Thinning Medicine: * You are given Lovenox during the immediate post-operative period to lessen the risk of blood clots forming in your legs and/or lungs. Lovenox is usually given for three weeks after surgery. Physical Therapy: * Do your physical therapy at home. These are the exercises you learned while in the hospital (quad sets, leg raises, calf pumps, gluteal squeezes, knee bending, and heel props.) You should do these exercises 3-4 times per day. * You will either go to inpatient rehab ([facility]), home with Home Therapy and nursing or home with outpatient rehab. You should do rehab with the therapist 2-3 times per week. You should do therapy on your own daily. * You may bear full weight on your leg with crutches or walker unless otherwise advised. Home Exercise: * You were shown a series of exercises (heel props, heel slides, etc.) in the hospital. Do these exercises three to four times each day including the exercises you were shown in physical therapy. Walking: * You may be up for short periods of time. Standing and walking for 1-2 hours at a time is usually okay. You should not stand or walk for excessive periods of time as this may cause increased pain and swelling. SELF CARE INSTRUCTIONS AFTER TOTAL KNEE REPLACEMENT A. You may need to continue a physical therapy program after discharge from the hospital. There are several options available to you. Your doctor will assist you in selecting the best one for you. 1. An out-patient facility 2 to 3 times a week for therapy or home therapy. 2. Continue working on all exercises taught to you in the hospital. Your goals should be to increase bending of your knee to 90 degrees and beyond and to fully straighten your knee. B. Your therapist will notify you when you are able to progress from a walker to a cane. C. Wear TEDS as much as possible.~ They may be removed at night for laundering. D. Do not place a pillow behind your knee when resting. A pillow at your ankle is okay. E. Ice your knee 15-20 minutes every 2-3 hours and elevate it above the level of your heart. F. You may shower on the fourth day after surgery using regular soap and water. Do not submerge until the wound is completely healed (approximately 2 weeks ). Until the fourth day after surgery, cover the incision/bandage with a bag or plastic wrap. G. Anyone who is touching your surgical incision area should wash their hands and wear gloves. H. Keep your incision covered with gauze pads under the MARY hose until it is dry. I. Leave dressings/zipper in place until your follow up appointment with Dr. Aaron. VERY IMPORTANT TO READ AND REVIEW A. YOU WILL BE GIVEN AN ORDER AT DISCHARGE FOR PT/INR (BLOOD WORK). PLEASE HAVE THIS DONE INSTRUCTED. PLEASE CALL OUR OFFICE AFTER YOUR BLOODWORK IS COMPLETE SO WE CAN TRACK YOUR RESULTS. IF YOU ARE GOING TO OUTPATIENT PHYSICAL THERAPY, YOU WILL NEED TO GO TO OUTPATIENT TESTING TO HAVE IT DRAWN. B. There are a few signs you need to watch for after you are home. Call [facility] if you notice any of the followin. Increased severe knee pain. Some pain is expected especially when you exercise. 2. Increased swelling in your leg or knee; pain or swelling of the calf muscle in either lower leg. 3. Any fluid drainage from the incision. 4. Shortness of breath or chest pain. 5. Numbness and tingling in the surgical extremity C. Please call [facility] at if you have any concerns or questions about your operation or recovery. The doctor or his nurse will return your call promptly. D. Do not have any elective dental work or other elective procedures done for 6 weeks after your knee replacement. When you have any invasive procedure (dental cleaning, extraction, colonoscopy etc) performed, you will need to take antibiotics to prevent infection from developing in your artificial joint. Tell your other health care providers you have an artificial joint. My office will supply you with further information and the antibiotics. Call your doctor if: * Temperature above 101 degrees F. * Pain not relieved by pain medicine ordered. * Increased drainage or redness from incision. * Notify your doctor with any questions or concerns. Follow-up Visit: You will follow-up with Dr. Aaron 10-14 days after surgery. You have an appointment scheduled on 03/25/17 at 10:45 a.m. The office number is . Avoid all tobacco products. If you need help to stop smoking, call [place]IT[facility] at . This is a free call. Current Hospital Diet Patient's current hospital diet: Regular Diet Discharge Diet Recommended Diet: Regular Diet Procedures Procedures Performed: Right Total Knee Arthroplasty Pending Studies Studies pending at discharge: no Medical Emergencies . Who to Call and When: Medical Emergencies: If at any time you feel your situation is an emergency, please call 911 immediately. . Non-Emergent Contact Non-Emergency issues call your: Surgeon Call Non-Emergent contact if: temperature is above 101, your pain is not controlled, your pain is worsening, your pain is unusual for you, your pain is concerning you, wound has increased drainage, wound has increased redness, wound has increased pain, you have any medication questions . "Provider Documentation" section prepared by Shakira Amos. . VTE Core Measure Inpt VTE Proph given/why not?: Enoxaparin (Lovenox)SQ (30 mg sq twice daily x 21 days) <Electronically signed by Shakira Amos PA-C> <Electronically signed by Giorgi Aaron MD> Signed: 03/12/17 [id number] Signed: 03/13/17 [id number] The status of this report is Signed * If report status is Draft, the document has not been finalized by the responsible provider.
== END 2017-03-13 15:30 | disposition home or self-care (01) | DRG 470 ==
LOC: C.ACU 04:52 → C.3E 11:41 → ENRESERV 11:51
PROVIDERS: ADMIT Orthopaedic Surgery Sports Medicine; ATTEND Orthopaedic Surgery Sports Medicine
PROC: 0SRC0J9 Replacement of Right Knee Joint with Synthetic Substitute, Cemented, Open Approach (ICD-10-PCS; principal; 2017-03-11 07:00)
DX: M17.11 Unilateral primary osteoarthritis, right knee (principal); D62 Acute posthemorrhagic anemia; Z68.43 Body mass index [BMI] 50.0-59.9, adult; I10 Essential (primary) hypertension; E66.01 Morbid (severe) obesity due to excess calories; J45.909 Unspecified asthma, uncomplicated; G47.30 Sleep apnea, unspecified; I25.10 Atherosclerotic heart disease of native coronary artery without angina pectoris; I25.2 Old myocardial infarction; Z79.82 Long term (current) use of aspirin; Z95.5 Presence of coronary angioplasty implant and graft; Z96.652 Presence of left artificial knee joint

== ENCOUNTER → 2017-03-25 | Outpatient (CLI) | payer OTHER ==
[~2017-03-25] MED LIST changes: +ENOX30IN SQ; -IBUP-1050 PO; +OXYC-57 PO
== END | disposition home or self-care (01) ==
LOC: C.RDSM 10:56
PROVIDERS: ATTEND Orthopaedic Surgery Sports Medicine
DX: Z96.651 Presence of right artificial knee joint (principal); M25.561 Pain in right knee

== ENCOUNTER → 2017-07-15 | Outpatient (CLI) | payer OTHER | END | disposition home or self-care (01) | LOC: C.RDSM 14:33 | PROVIDERS: ATTEND Orthopaedic Surgery Sports Medicine | DX: Z09 Encounter for follow-up examination after completed treatment for conditions other than malignant neoplasm (principal) ==